=== PATIENT | female | born 1945 | race Caucasian/White ===

== ENCOUNTER → 2016-12-13 | Outpatient (CLI) | payer BC ==
[~2016-12-13] MED LIST: ALBU0.633 INH; ASPEC81 PO; ASPI81TA21 PO; ATV5X PO; CETI10CA PO; KFLHP PO; LPT/40 PO; LSN20 PO; OMEP20TA PO; SERT1TAB68 PO; SYN125 PO
== END | disposition home or self-care (01) ==
LOC: C.LABSPEC 17:08
PROVIDERS: ATTEND Podiatrist Foot & Ankle Surgery
DX: L60.0 Ingrowing nail (principal)

== ENCOUNTER → 2017-01-06 | Outpatient (CLI) | payer BC | END | disposition home or self-care (01) | LOC: C.LABSPEC 17:10 | PROVIDERS: ATTEND Podiatrist Foot & Ankle Surgery | DX: L60.0 Ingrowing nail (principal) ==

== ENCOUNTER 2017-01-09 15:30 | Emergency (ER) | payer BC ==
[~2017-01-09] VITALS: Ht 149.9 cm; Wt 56.9 kg
[~2017-01-09 15:30] MED LIST changes: -ASPI81TA21 PO; -ATV5X PO; -KFLHP PO
[2017-01-09 15:34] VITALS: TEMP 36.4; Ht 149.9 cm; Wt 56.9 kg
[2017-01-09] MEDS ORDERED: SODIUM CHLORIDE 0.9% 1000ML 1,000 ML IV STA (16:31)
[2017-01-09] MEDS ORDERED: ONDANSETRON 8 MG/54 ML D5W IV STA (16:31)
[2017-01-09] MEDS ORDERED: HYDROmorphone INJ 0.5 MG/0.5 ML SYR IV STA (16:31)
[2017-01-09 16:39] VITALS: O2SAT 98
[2017-01-09] MEDS ORDERED: ASPI81TA21 PO (16:46)
[2017-01-09] MEDS ORDERED: KFLHP PO (16:49)
[2017-01-09] MEDS ORDERED: ATV5X PO (16:52)
[2017-01-09 17:05] LABS: BASO % 0.4 %; BASO ABS # 0.06 K/uL (0-0.2); COMPLETE YES; EOS % 4.1 %; HEMATOCRIT 41.5 % (37-47); IG% 0.4 %; LYMPH % 6.8 %; LYMPH ABS # 1.13 K/uL (1.2-3.4); MEAN CELL VOLUME 97.2 fL (80-100); MEAN CORPUSCULAR HEMOGLOBIN 31.4 pg (25-34); MEAN CORPUSCULAR HGB CONC 32.3 g/dl (32-36); MEAN PLATELET VOLUME 8.9 fL (7.4-10.4); MONO % 5.2 %; NEUT % 83.1 %; PLATELET COUNT 359 K/uL (130-400); RED BLOOD COUNT 4.27 M/uL (4.2-5.4); WHITE BLOOD COUNT 16.55 K/uL (4.8-10.8)
--- NOTE | 2017-01-09 17:10 | DIAGNOSTIC IMAGING REPORT ---
CHEST ONE VIEW PORTABLE CLINICAL HISTORY: CHEST PAIN dyspnea COMPARISON STUDY: 05/28/2016 FINDINGS: The bones soft tissues and hemidiaphragms are normal. The cardiomediastinal silhouette is normal. The lungs are clear. The pulmonary vasculature is normal. IMPRESSION: Negative chest. The above report was generated using voice recognition software. It may contain grammatical, syntax or spelling errors. Electronically signed by: Keith Cole M.D. 01/09/2017 5:08 PM Dictated Date/Time: 01/09/2017 5:08 PM
[2017-01-09 17:24] LABS: ALT/SGPT 33 U/L (12-78); AST/SGOT 28 U/L (15-37); BLOOD UREA NITROGEN 14 mg/dl (7-18); BUN/CREATININE RATIO 15.8 (10-20); CALCIUM 8.7 mg/dl (8.5-10.1); CARBON DIOXIDE 28 mmol/L (21-32); CHLORIDE 103 mmol/L (98-107); CREATININE 0.91 mg/dl (0.60-1.20); GLUCOSE 102 mg/dl (70-99); POTASSIUM 3.8 mmol/L (3.5-5.1); SODIUM 139 mmol/L (136-145)
[2017-01-09 17:29] LABS: ALKALINE PHOSPHATASE 109 U/L (45-117); CKMB/CK RATIO 1.6 (0-3.0)
--- NOTE | 2017-01-09 17:55 | DIAGNOSTIC IMAGING REPORT ---
ABDOMINAL ULTRASOUND, RIGHT UPPER QUADRANT HISTORY: upper abd pain. COMPARISON: None. FINDINGS: Pancreas: The pancreas demonstrates a normal echotexture. Liver: Unremarkable. Gallbladder: No gallbladder wall thickening. No gallstones. CBD: 4 mm. Right kidney: No hydronephrosis. IMPRESSION: No significant abnormality identified within the right upper quadrant. Electronically signed by: Giovanni Tinajero M.D. 01/09/2017 5:53 PM Dictated Date/Time: 01/09/2017 5:52 PM
[2017-01-09] MEDS ORDERED: OPTIRAY 320 IV PRN (18:30)
--- NOTE | 2017-01-09 18:43 | DIAGNOSTIC IMAGING REPORT ---
ABD/PELVIS IV CONTRAST ONLY CT DOSE: 266.36 mGy.cm HISTORY: Pain upper abd pain, elevated wbc. Neg us TECHNIQUE: Multiaxial CT images of the abdomen and pelvis were performed following the use of intravenous contrast. A dose lowering technique was utilized adhering to the principles of ALARA. COMPARISON STUDY: Ultrasound same date FINDINGS: Lung bases are clear. Mild fatty replacement of the liver. The kidneys enhance uniformly. Spleen is unremarkable. Mild hyperemia of the wall of the small bowel and to a lesser extent colon. Mild gastric distention. Appearance is suggestive of a nonspecific enteritis. Normal appendix. Bowel pattern is nonobstructive. Several scattered colonic diverticuli with no evidence for diverticulitis. IMPRESSION: 1. Mild nonspecific generalized enteritis. 2. Mild fatty infiltration of liver. 3. Normal appendix. 4. Nonobstructive bowel pattern The above report was generated using voice recognition software. It may contain grammatical, syntax or spelling errors. Electronically signed by: Keith Cole M.D. 01/09/2017 6:41 PM Dictated Date/Time: 01/09/2017 6:39 PM
[2017-01-09] MEDS ORDERED: ONDANSETRON HOME PACK 4MG OD TAB PO ONE (19:30)
[2017-01-09 20:10] VITALS: BP 119/64; PULSE 76; O2SAT 95
--- NOTE | 2017-01-10 00:44 | EMERGENCY ROOM VISIT NOTE ---
History Report prepared by Maddy: Jena Ellis Under the Supervision of: Dr. Dominguez Crane M.D. First contact with patient: 16:27 Chief Complaint: BACK PAIN Stated Complaint: PRESSURE IN BACK AND CHEST, REFLUX, UPSET STOMACH History of Present Illness The patient is a 71 year old female who presents to the Emergency Room with complaints of intermittent abdominal pain that she describes as a pressure that began one week ago. She currently rates her discomfort as an 8/10 in severity. The patient states that in May she had an episode of pain to her chest back and abdomen. She states that after he work up she her pain was attributed to musculoskeletal pain. The patient states that she was prescribed a muscle relaxer by her PCP, but notes that she still experiences intermittent bouts of pain. She states that she experiences nausea, increased acid reflux, and chest and abdominal pressure that radiate into her back. The patient states that she has had a decrease in appetite and states that her discomfort is worsened after eating. She reports a history of three sections and an appendectomy, but states that she still has her gallbladder. The patient states that she did experience chills today. Pt denies LOC, headache, fevers, diaphoresis, visual changes, neck pain, breathing difficulties, vomiting, melena, hematochezia, urinary symptoms, numbness, weakness, lymphadenopathy, rash, or other complaints. Source of History: patient Onset: one week ago Position: abdomen Symptom Intensity: 8/10 Quality: pressure Timing: intermittent Modifying Factors (Worsening): eating Associated Symptoms: + chills, + chest pain, + nausea, + back pain Review of Systems See HPI for pertinent positives and negatives. A total of ten systems were reviewed and were otherwise negative. Past Medical & Surgical Medical Problems: (1) Depressive Disorder Nec (2) Esophageal Reflux (3) Hyperlipidemia Nec/Nos (4) Hypertension Nos (5) Hypothyroidism Nos (6) Irritable Bowel Syndrome Surgical Problems: (1) Lens Replacement Nec Family History Heart disease Hypertension Social History Smoking Status: Never Smoker Alcohol Use: none Drug Use: none Occupation Status: employed Current/Historical Medications Scheduled Aspirin Enteric Coated (Ecotrin Or Generic), 81 MG PO DAILY Atorvastatin (Lipitor), 40 MG PO HS Cephalexin Monohydrate (Cephalexin), 250 MG PO QID Levothyroxine Sodium (Synthroid), 125 MCG PO QAM Lisinopril (Lisinopril), 20 MG PO QAM Omeprazole (Omeprazole), 20 MG PO QAM Sertraline Hcl (Zoloft), 150 MG PO QAM Scheduled PRN Albuterol Sulfate (Albuterol Sulfate), 1 PUFF INH DIRECTED PRN for SOB/ Wheezing Cetirizine Hcl (Zyrtec Allergy), 10 MG PO DAILY PRN for ALLERGIC REACTION Lorazepam (Lorazepam), 0.5 MG PO DAILY PRN for Anxiety/Agitation Allergies Coded Allergies: Astemizole (Verified Allergy, Mild, SWELLING THROAT AND RINGING IN EARS, 05/28/16) Uncoded Allergies: CATS (Allergy, Severe, sneezing wheezing itching, 03/02/16) Physical Exam Vital Signs Date Time Temp Pulse Resp B/P (MAP) Pulse Ox O2 Delivery O2 Flow Rate FiO2 01/09/17 20:10 76 18 119/64 95 01/09/17 19:17 75 01/09/17 19:02 78 18 127/87 95 Room Air 01/09/17 18:13 68 18 155/84 98 Room Air 01/09/17 16:39 98 Room Air 01/09/17 16:39 75 16 99/85 98 Room Air 01/09/17 16:39 98 Room Air 01/09/17 15:34 36.4 100 16 123/70 98 Room Air Physical Exam GENERAL: Awake, alert, well-appearing, in no distress HENT: Normocephalic, atraumatic. Oropharynx unremarkable. EYES: Normal conjunctiva. Sclera non-icteric. NECK: Supple. No nuchal rigidity. FROM. No JVD. RESPIRATORY: Clear to auscultation. CARDIAC: Regular rate, normal rhythm. Extremities warm and well perfused. Pulses equal. ABDOMEN: Soft, non-distended. Epigastric tenderness to palpation.. No rebound or guarding. No masses. RECTAL: Deferred. MUSCULOSKELETAL: Chest examination reveals no tenderness. The back is symmetrical on inspection without obvious abnormality. There is no CVA tenderness to palpation. No joint edema. LOWER EXTREMITIES: Calves are equal size bilaterally and non-tender. No edema. No discoloration. NEURO: Normal sensorium. No sensory or motor deficits noted. SKIN: No rash or jaundice noted. Medical Decision & Procedures ER Provider Diagnostic Interpretation: Radiology results as stated below per my review and radiologist interpretation: CHEST ONE VIEW PORTABLE CLINICAL HISTORY: CHEST PAIN dyspnea COMPARISON STUDY: 05/28/2016 FINDINGS: The bones soft tissues and hemidiaphragms are normal. The cardiomediastinal silhouette is normal. The lungs are clear. The pulmonary vasculature is normal. IMPRESSION: Negative chest. The above report was generated using voice recognition software. It may contain grammatical, syntax or spelling errors. Electronically signed by: Keith Cole M.D. 01/09/2017 5:08 PM Dictated Date/Time: 01/09/2017 5:08 PM ABDOMINAL ULTRASOUND, RIGHT UPPER QUADRANT HISTORY: upper abd pain. COMPARISON: None. FINDINGS: Pancreas: The pancreas demonstrates a normal echotexture. Liver: Unremarkable. Gallbladder: No gallbladder wall thickening. No gallstones. CBD: 4 mm. Right kidney: No hydronephrosis. IMPRESSION: No significant abnormality identified within the right upper quadrant. Electronically signed by: Giovanni Tinajero M.D. 01/09/2017 5:53 PM Dictated Date/Time: 01/09/2017 5:52 PM ABD/PELVIS IV CONTRAST ONLY CT DOSE: 266.36 mGy.cm HISTORY: Pain upper abd pain, elevated wbc. Neg us TECHNIQUE: Multiaxial CT images of the abdomen and pelvis were performed following the use of intravenous contrast. A dose lowering technique was utilized adhering to the principles of ALARA. COMPARISON STUDY: Ultrasound same date FINDINGS: Lung bases are clear. Mild fatty replacement of the liver. The kidneys enhance uniformly. Spleen is unremarkable. Mild hyperemia of the wall of the small bowel and to a lesser extent colon. Mild gastric distention. Appearance is suggestive of a nonspecific enteritis. Normal appendix. Bowel pattern is nonobstructive. Several scattered colonic diverticuli with no evidence for diverticulitis. IMPRESSION: 1. Mild nonspecific generalized enteritis. 2. Mild fatty infiltration of liver. 3. Normal appendix. 4. Nonobstructive bowel pattern The above report was generated using voice recognition software. It may contain grammatical, syntax or spelling errors. Electronically signed by: Keith Cole M.D. 01/09/2017 6:41 PM Dictated Date/Time: 01/09/2017 6:39 PM Laboratory Results 01/09/17 16:45 Red Blood Count 4.27, Mean Corpuscular Volume 97.2, Mean Corpuscular Hemoglobin 31.4, Mean Corpuscular Hemoglobin Concent 32.3, Mean Platelet Volume 8.9, Neutrophils (%) (Auto) 83.1, Lymphocytes (%) (Auto) 6.8, Monocytes (%) (Auto) 5.2, Eosinophils (%) (Auto) 4.1, Basophils (%) (Auto) 0.4, Neutrophils # (Auto) 13.75, Lymphocytes # (Auto) 1.13, Monocytes # (Auto) 0.86, Eosinophils # (Auto) 0.68, Basophils # (Auto) 0.06 01/09/17 16:45 Test 01/09/17 16:45 White Blood Count 16.55 K/uL (4.8-10.8) Red Blood Count 4.27 M/uL (4.2-5.4) Hemoglobin 13.4 g/dL (12.0-16.0) Hematocrit 41.5 % (37-47) Mean Corpuscular Volume 97.2 fL (80-100) Mean Corpuscular Hemoglobin 31.4 pg (25-34) Mean Corpuscular Hemoglobin Concent 32.3 g/dl (32-36) Platelet Count 359 K/uL (130-400) Mean Platelet Volume 8.9 fL (7.4-10.4) Neutrophils (%) (Auto) 83.1 % Lymphocytes (%) (Auto) 6.8 % Monocytes (%) (Auto) 5.2 % Eosinophils (%) (Auto) 4.1 % Basophils (%) (Auto) 0.4 % Neutrophils # (Auto) 13.75 K/uL (1.4-6.5) Lymphocytes # (Auto) 1.13 K/uL (1.2-3.4) Monocytes # (Auto) 0.86 K/uL (0.11-0.59) Eosinophils # (Auto) 0.68 K/uL (0-0.5) Basophils # (Auto) 0.06 K/uL (0-0.2) RDW Standard Deviation 44.7 fL (36.4-46.3) RDW Coefficient of Variation 12.6 % (11.5-14.5) Immature Granulocyte % (Auto) 0.4 % Immature Granulocyte # (Auto) 0.07 K/uL (0.00-0.02) Anion Gap 8.0 mmol/L (3-11) Est Creatinine Clear Calc Drug Dose 44.2 ml/min Estimated GFR () 74.1 Estimated GFR (Non- 63.9 BUN/Creatinine Ratio 15.8 (10-20) Calcium Level 8.7 mg/dl (8.5-10.1) Total Bilirubin 0.4 mg/dl (0.2-1) Direct Bilirubin 0.1 mg/dl (0-0.2) Aspartate Amino Transf (AST/SGOT) 28 U/L (15-37) Alanine Aminotransferase (ALT/SGPT) 33 U/L (12-78) Alkaline Phosphatase 109 U/L (45-117) Total Creatine Kinase 216 U/L (26-192) Creatine Kinase MB 3.5 ng/ml (0.5-3.6) Creatine Kinase MB Ratio 1.6 (0-3.0) Troponin I < 0.015 ng/ml (0-0.045) Total Protein 7.6 gm/dl (6.4-8.2) Albumin 3.9 gm/dl (3.4-5.0) Lipase 178 U/L (73-393) Laboratory results reviewed by me Medications Administered Medications (Trade) Dose Ordered Sig/Lola Route Start Time Stop Time Status Last Admin Dose Admin Ondansetron HCl (Zofran 8mg Iv) 8 mg NOW STAT IV 01/09/17 16:31 01/09/17 16:32 DC 01/09/17 16:54 8 MG Hydromorphone HCl (Dilaudid Inj) 0.5 mg NOW STAT IV 01/09/17 16:31 01/09/17 16:33 DC 01/09/17 16:53 0.5 MG Sodium Chloride 1,000 ml @ 125 mls/hr Q8H STAT IV 01/09/17 16:31 01/09/17 20:24 DC 01/09/17 16:54 125 MLS/HR Ondansetron HCl (ZOFRAN ODT 4MG Home Pack) 1 homepack UD ONCE PO 01/09/17 19:30 01/09/17 19:31 DC 01/09/17 19:51 1 HOMEPACK ECG Indication: abdominal pain, chest pain Rate (beats per minute): 76 Rhythm: normal sinus Findings: no acute ischemic change, no ectopy ED Course 1629: The patient was evaluated in room C4. A complete history and physical exam was performed. 163: Ordered Sodium Chloride 1000 ml @ 125 mls/hr IV, Dilaudid Inj 0.5 mg IV, Zofran 8 mg IV. 180: I reevaluated the patient and she is feeling a lot better. I discussed the test results with her and I discussed the treatment plan. She is going to have a CT scan. 1914: I reevaluated the patient and she is resting comfortably. I discussed the exam findings with her and I discussed the treatment plan. She verbalized complete understanding and agreement. She is ready to go home. 1929: Ordered Ondansetron HCl 1 homepack PO. Medical Decision Triage Nursing notes reviewed. The patient's presentation and history were concerning for abdominal pain. Etiologies such as PUD, biliary pathology, pancreatitis, appendicitis, diverticulitis, obstruction, inflammatory bowel disease, renal colic, mesenteric ischemia, aortic pathology, infections, genitourinary, UTI, perforated viscus, as well as others were entertained. Patient was evaluated. She was given Zofran and Dilaudid. She was hydrated. On reassessment she felt much better. Her symptoms resolved. She had a slight leukocytosis on CBC. Her chemistry panel, LFTs, and lipase were unremarkable. Cardiac markers and ECG were unremarkable. The patient had a gallbladder ultrasound which did not reveal any abnormalities. Her CT scan of the abdomen and pelvis revealed a nonspecific enteritis. She did have a moderate amount of liquid in the stomach. She may have a component of gastroparesis as the last time she had anything to eat was this morning. There is no signs of obstruction. At this point as she is hemodynamically stable and feeling well I discussed conservative management with outpatient referral to gastroenterology. By the evaluation outlined above other emergent etiologies such as those listed in the differential, as well as others, were deemed relatively unlikely. The patient was educated about the findings as listed above. All questions were answered and the patient was pleased with the treatment. Return instructions were outlined and the patient was discharged in stable condition. The patient was referred to GI and her PCP for follow-up for a recheck of the current condition. Medication Reconcilliation Current Medication List: was personally reviewed by me Blood Pressure Screening Patient's blood pressure: Elevated blood pressure Blood pressure disposition: Elevated BP felt to be situational, Did not require urgent referral Impression Primary Impression: Epigastric abdominal pain Additional Impression: Enteritis Scribe Attestation The scribe's documentation has been prepared under my direction and personally reviewed by me in its entirety. I confirm that the note above accurately reflects all work, treatment, procedures, and medical decision making performed by me. Departure Information Dispostion Home / Self-Care Referrals Katarzyna Escobar DO (PCP) Pamela Estrada DO Forms HOME CARE DOCUMENTATION FORM, IMPORTANT VISIT INFORMATION Patient Instructions My [facility] Additional Instructions ABDOMINAL PAIN INSTRUCTIONS: DO NOT drive, drink alcohol, operate machinery, or perform dangerous activities today. You were given medications in the ER that can affect your ability to safely function or operate a vehicle. Zofran 4 mg oral dissolving tablets: take one tablet and allow it to melt in your mouth every 4 hours as needed for nausea. Double your Prilosec to twice daily until directed otherwise by your primary doctor or GI follow-up. Acetaminophen(Tylenol) may be used for fever or pain. Use 1000mg every six hours as needed. Avoid using more than 4000mg in a 24 hour period. Rest and drink plenty of fluids as tolerated. Slow sips of water or sports drinks are recommended instead of large amounts all at once. Continue current medications. Once your stomach is settled start with a clear liquid diet (jello, soup broth, etc.) and then advance as tolerated. You should avoid full, heavy meals for about 24 hrs from the time your symptoms resolved. Return to the ER immediately for worsening or persistent abdominal pain, vomiting, fevers, chest pains, difficulty breathing, black or bloody stools, worsening of your condition, or as needed. Follow up with your primary physician in 2-3 days for a recheck of your current condition. Follow-up with [facility] gastroenterology as discussed. The numbers listed below under Dr. Estrada. Problem Qualifiers
== END 2017-01-09 20:11 | disposition home or self-care (01) ==
LOC: C.EDB 15:36 → C.EDC 20:11
DX: K52.9 Noninfective gastroenteritis and colitis, unspecified (principal); F32.9 Major depressive disorder, single episode, unspecified; K21.9 Gastro-esophageal reflux disease without esophagitis; E78.5 Hyperlipidemia, unspecified; I10 Essential (primary) hypertension; E03.9 Hypothyroidism, unspecified; Z96.1 Presence of intraocular lens; Z82.49 Family history of ischemic heart disease and other diseases of the circulatory system; Z79.82 Long term (current) use of aspirin; Z79.899 Other long term (current) drug therapy

== ENCOUNTER → 2017-08-22 | Outpatient (CLI) | payer OTHER ==
[~2017-08-22] MED LIST changes: -ASPEC81 PO; +ASPI81TA21 PO; +ATV5X PO; +KFLHP PO
[2017-08-22 09:48] LABS: ALBUMIN 3.7 gm/dl (3.4-5.0); ALT/SGPT 26 U/L (12-78); AST/SGOT 25 U/L (15-37); BLOOD UREA NITROGEN 14 mg/dl (7-18); CARBON DIOXIDE 28 mmol/L (21-32); CREATININE 0.94 mg/dl (0.60-1.20); GLUCOSE 91 mg/dl (70-99); SODIUM 139 mmol/L (136-145); TOTAL PROTEIN 7.9 gm/dl (6.4-8.2)
[2017-08-22 09:58] LABS: ALKALINE PHOSPHATASE 109 U/L (45-117); CHOLESTEROL 347 mg/dl (0-200); LDL CHOLESTEROL CALCULATED 245 mg/dl
== END | disposition home or self-care (01) ==
LOC: C.LAB1850 07:31
PROVIDERS: ATTEND Family Medicine
DX: E03.8 Other specified hypothyroidism (principal); E06.3 Autoimmune thyroiditis; E78.00 Pure hypercholesterolemia, unspecified; I10 Essential (primary) hypertension

== ENCOUNTER 2022-02-05 05:39 | Inpatient (IN) ==
[2022-02-05 06:12] LABS: Basophils # (auto) 0.04 K/uL (0-0.2); Basophils % (auto) 0.2 %; Eosinophils # (auto) 0.04 K/uL (0-0.50); Eosinophils % (auto) 0.2 %; Hemoglobin 12.4 g/dl (12.0-16.0); Immature Granulocytes # (auto) 0.13 K/uL (0.00-0.02); Immature Granulocytes % (auto) 0.7 %; Lymphocytes # (auto) 2.38 K/uL (1.2-3.4); Lymphocytes % (auto) 12.1 %; Mean Corpuscular Hemoglobin 31.9 pg (25.0-34.0); Mean Corpuscular Hgb Conc 32.6 g/dL (32.0-36.0); Mean Corpuscular Volume 97.7 fL (80.0-100.0); Mean Platelet Volume 8.6 fL (9.4-12.3); Monocytes # (auto) 1.28 K/uL (0.24-0.82); Monocytes % (auto) 6.5 %; Neutrophils # (auto) 15.81 K/uL (1.4-6.5); Neutrophils % (auto) 80.3 %; Platelet Count 343 K/uL (130-400); RDW Coefficient of Variation 12.1 % (11.5-14.5); RDW Standard Deviation 43.5 fL (36.4-46.3); Red Blood Count 3.89 M/uL (3.93-5.22); White Blood Count 19.68 K/ul (4.8-10.8)
[2022-02-05 06:31] LABS: Albumin Globulin Ratio 1.2 (0.9-2); Albumin Level 3.8 gm/dl (3.4-5.0); BUN Creatinine Ratio 15.5 (10-20); Bilirubin,Total 0.6 mg/dl (0.2-1.0); Calcium 8.8 mg/dl (8.5-10.1); Creatinine Clr Calc Pharmacy 38.2 ml/min; Est GFR (African American) 66.2 ml/min; Est GFR (Non-African American) 57.1 ml/min; Globulin 3.2 gm/dl (2.5-4.0); Potassium 4.1 mmol/L (3.5-5.1)
[2022-02-05] MEDS ORDERED: KETOROLAC TROMETHAMINE 15 MG/ML VIAL IV ONE (06:40)
[2022-02-05] MEDS ORDERED: SODIUM CHLORIDE 0.9% 1000ML 500 ML IV ONE (06:40)
[2022-02-05] MEDS ORDERED: cefTRIAXone SODIUM 2,000 MG/70 ML BAG IV STA (06:40)
--- NOTE | 2022-02-05 06:43 | Emergency Department Note ---
Impression & Plan Acute pyelonephritis, Leukocytosis, Vomiting ED Provider Note NAME: ASMITA JEFRFEY AGE: 76 SEX: F : 1945 ARRIVES VIA: Walk-In INFORMANT: Patient ED PROVIDER(S): Shay Whatley DO CHIEF COMPLAINT: abdominal pain HPI: Patient is a 76-year-old female who presents the ER for abdominal pain dysuria urgency which started a week ago. About 2 to 3 days ago she started getting pain in bilateral lower back. She recorded fevers. She admits to nausea but no vomiting. No headache or change in vision. No chest pain or shortness of breath. Pain is about a 4 out of 10 and constant and achy in the lower belly but sharp when you push on her abdomen. Is worse in the left lower quadrant. ROS: See above HPI for pertinent positives & negatives. A total of 10 systems reviewed and were otherwise negative. PAST MEDICAL HISTORY:See Below PAST SURGICAL HISTORY:See Below FAMILY HISTORY:See Below SOCIAL HISTORY:See Below HOME MEDICATIONS:See Below ALLERGIES:See Below VITALS:See Below PHYSICAL EXAMINATION: GENERAL: Sitting up in bed, alert, well appearing, well nourished, no distress, non-toxic EYE EXAM: normal conjunctiva. OROPHARYNX: mucous membranes are dry NECK: supple, no nuchal rigidity, no adenopathy, non-tender LUNGS: Clear to auscultation. Normal chest wall mechanics HEART: no murmurs, S1 normal and S2 normal ABDOMEN: abdomen soft, TTP lower abd, normo-active bowel sounds, no masses, no rebound or guarding. UPPER EXTREMITIES: upper extremities are grossly normal. LOWER EXTREMITIES: No pitting edema. NEURO EXAM: Normal sensorium, cranial nerves II-XII grossly intact, normal speech, no gross weakness of arms, no gross weakness of legs. MEDICAL DECISION MAKING: Patient is a 76-year-old female who presents the ER for urinary symptoms which started about a week ago and was treated with [id number] medications. About 2 to 3 days ago she started having back pain. She is very nauseated and vomiting today. IV was established blood work was obtained. Labs show leukocytosis of 20,000. No significant anemia. Did drop her blood pressure slightly to 95. She responded to IV fluids. BMP along with LFTs bilirubin and lipase was unremarkable. UA was contaminated but does suggest a UTI. CT abdomen pelvis shows bilateral pyelonephritis. She was given IV fluids Zofran Toradol. Was also given Rocephin. She did vomit while she was here. She was updated bedside. Discussed with the hospitalist for further evaluation. Triage Nursing notes reviewed. Limited review of prior medical records performed Vital Signs: reviewed and remarkable for no significant abnormalities Differential diagnosis: Differential diagnoses includes but is not limited to gastritis, peptic ulcer disease, GERD, gallbladder disease, pancreatitis, small bowel obstruction, acute coronary syndrome, pericarditis, ischemic bowel, irritable bowel disease, irritable bowel syndrome, appendicitis, diverticulitis, malignancy, hernia, urinary tract infection, torsion, perforation, trauma, infectious. ER treatment provided: See below Diagnostics interpreted by me: ECG: none Cardiac Monitoring: An order was placed for continuous cardiac monitoring. The monitor shows a rate of 90 with sinus rhythm. Laboratory studies: As stated above and show below. Imaging studies: CT abdomen pelvis suggest bilateral pyelonephritis Consultation(s): Discussed with Dr. Oro in regards to further evaluation Procedures: none Critical Care: None Past Med/Surg History Medical History (Updated 02/05/22 @ 08:43 by Shay Whatley DO) Epigastric abdominal pain UTI (urinary tract infection) Social History Smoking Status: Never smoker Preferred Language: Com[place]an Feels Safe at Home: Yes Allergies Allergies Allergy/AdvReac Type Severity Reaction Status Date / Time cat dander Allergy Severe sneezing Verified 01/29/19 08:06 wheezing itching astemizole Allergy Mild SWELLING Verified 01/29/19 08:06 THROAT AND RINGING IN EARS Home Meds Home Medications Medication Instructions Recorded Confirmed atorvastatin 40 mg tablet 40 mg PO DAILY 03/30/18 11/03/20 levothyroxine 125 mcg tablet 125 mcg PO DAILY 03/30/18 11/03/20 lisinopril 20 mg tablet 20 mg PO DAILY 03/30/18 11/03/20 omeprazole 20 mg capsule,delayed 20 mg PO DAILY 03/30/18 11/03/20 release sertraline 100 mg tablet 100 mg PO DAILY 03/30/18 11/03/20 aspirin 81 mg tablet,delayed 81 mg PO DAILY 01/29/19 11/03/20 release (Stephane Low Dose Aspirin) Previous Rx's Medication Instructions Recorded sulfamethoxazole 800 160 mg PO Q12H #20 tabs 01/29/19 mg-trimethoprim 160 mg tablet (Bactrim DS) Results & Data (ED) Vital Signs Vital Signs - 24 hr 02/05/22 05:41 Temperature 36.4 C L Temperature Source Temporal Artery Scan Pulse Rate 86 Respiratory Rate 18 Blood Pressure 125/64 Blood Pressure Mean 84 Blood Pressure Position Sitting Pulse Oximetry 96 Oxygen Delivery Method Room Air Sepsis Recent Fever Within 48 Hours No Sepsis New/Unexplained Change in Mental Status N/A Sepsis Action Taken by Nursing No Action Required Laboratory Data Result diagrams: 02/05/22 06:00 02/05/22 06:00 Lab Results 02/05/22 02/05/22 02/05/22 Range/Units 05:50 06:00 06:00 WBC 19.68 H (4.8-10.8) K/ul RBC 3.89 L (3.93-5.22) M/uL Hgb 12.4 (12.0-16.0) g/dl Hct 38.0 (34.1-44.9) % MCV 97.7 (80.0-100.0) fL MCH 31.9 (25.0-34.0) pg MCHC 32.6 (32.0-36.0) g/dL RDW Std Deviation 43.5 (36.4-46.3) fL RDW Coeff of [place] 12.1 (11.5-14.5) % Plt Count 343 (130-400) K/uL MPV 8.6 L (9.4-12.3) fL Immature Gran % (Auto) 0.7 % Neut % (Auto) 80.3 % Lymph % (Auto) 12.1 % [place] % (Auto) 6.5 % Eos % (Auto) 0.2 % Baso % (Auto) 0.2 % Neut # (Auto) 15.81 H (1.4-6.5) K/uL Lymph # (Auto) 2.38 (1.2-3.4) K/uL [place] # (Auto) 1.28 H (0.24-0.82) K/uL Eos # (Auto) 0.04 (0-0.50) K/uL Baso # (Auto) 0.04 (0-0.2) K/uL Immature Gran # (Auto) 0.13 H (0.00-0.02) K/uL Sodium 135 L (136-145) mmol/L Potassium 4.1 (3.5-5.1) mmol/L Chloride 102 (98-107) mmol/L Carbon Dioxide 26 (21-32) mmol/L Anion Gap 7 (3-11) BUN 15 (6-23) mg/dl Creatinine 0.97 (0.6-1.2) mg/dl Est Cr Clr Drug Dosing 38.2 ml/min Est GFR ( Amer) 66.2 ml/min Est GFR (Non-Af Amer) 57.1 ml/min BUN/Creatinine Ratio 15.5 (10-20) Glucose 117 H (70-99(Fasting)) mg/dl Calcium 8.8 (8.5-10.1) mg/dl Total Bilirubin 0.6 (0.2-1.0) mg/dl AST 34 (13-39) U/L ALT 39 (7-52) U/L Alkaline Phosphatase 89 (34-104) U/L Total Protein 7.0 (6.0-8.3) gm/dl Albumin 3.8 (3.4-5.0) gm/dl Globulin 3.2 (2.5-4.0) gm/dl Albumin/Globulin Ratio 1.2 (0.9-2) Lipase 52 (11-82) U/L Urine Color Yellow Urine Appearance Clear (Clear) Urine pH 7.5 (4.5-7.5) Ur Specific [place] 1.012 (1.000-1.030) Urine Protein 1+ H (Negative) Urine Glucose (UA) Negative (Negative) Urine Ketones Negative (Negative) Urine Blood 3+ H (Negative) Urine Nitrite Negative (Negative) Urine Bilirubin Negative (Negative) Urine Urobilinogen Negative (Negative) Ur Leukocyte Esterase 1+ H (Negative) Urine WBC (Auto) 10-30 H (0-5) /hpf Urine RBC (Auto) >30 H (0-4) /hpf U Hyaline Cast (Auto) 1-5 (0-5) /lpf U Epithel Cells (Auto) >30 H (0-5) /lpf Urine Bacteria (Auto) Negative (Negative) Ur Renal Epithelial Cell Not Reportable Administered Medications Sodium Chloride (Nss 1000ml) 1,000 mls @ 999 mls/hr IV .Q1H1M ONE Stop: 02/05/22 09:08 Last Admin: 02/05/22 08:40 Dose: 999 mls/hr Documented By: RUDDY Discontinued Medications Sodium Chloride (Nss 1000ml) 500 mls @ 999 mls/hr IV .Q31M ONE Stop: 02/05/22 07:10 Last Infusion: 02/05/22 08:41 Dose: 0 mls/hr Documented By: Admin: 02/05/22 06:50 Dose: 999 mls/hr Documented By: RANDEE Ceftriaxone Sodium (Rocephin) 2,000 mg in 70 mls @ 140 mls/hr IV NOW STA Stop: 02/05/22 07:09 Last Infusion: 02/05/22 08:41 Dose: 0 mls/hr Documented By: Admin: 02/05/22 06:50 Dose: 140 mls/hr Documented By: RANDEE Ioversol (Optiray 300 100ml) 93 ml IV ONCE ONE Stop: 02/05/22 07:36 Last Admin: 02/05/22 07:39 Dose: 93 ml Documented By: SUE Ketorolac Tromethamine (Ketorolac Tromethamine 15 Mg/Ml Vial) 15 mg IV NOW ONE Stop: 02/05/22 06:41 Last Admin: 02/05/22 06:50 Dose: 15 mg Documented By: RANDEE Morphine Sulfate (Morphine Sulfate 4 Mg/Ml 1 Ml Carp\Vial) 4 mg IV NOW STA Stop: 02/05/22 08:22 Last Admin: 02/05/22 08:40 Dose: 4 mg Documented By: RUDDY Ondansetron HCl (Ondansetron Inj 2 Mg/Ml 2 Ml Vial) 4 mg IV NOW STA Stop: 02/05/22 06:57 Last Admin: 02/05/22 07:00 Dose: 4 mg Documented By: RANDEE Ondansetron HCl (Ondansetron Inj 2 Mg/Ml 2 Ml Vial) Confirm Administered Dose 4 mg .ROUTE .STK-MED ONE Stop: 02/05/22 07:00 Last Admin: 02/05/22 07:00 Dose: Not Given Documented By: RANDEE Imaging Data Radiologist's Impression: Abdomen/Pelvis CT 02/05/22 05:[address] WITH IV CONTRAST CT DOSE: 263.24 mGy.cm HISTORY: lower abd pain/flank pain, ua sx TECHNIQUE: Multiaxial CT images of the abdomen and pelvis were performed following the use of intravenous contrast. A dose lowering technique was utilized adhering to the principles of ALARA. COMPARISON STUDY: Abdomen and pelvis CT 01/29/2019. FINDINGS: The lung bases are essentially clear. No pneumoperitoneum. No pneumatosis. Dextroscoliosis and degenerative changes again noted within the lumbar spine. Stable 1.2 cm cyst within the right hepatic lobe. The gallbladder, spleen, and adrenal glands unremarkable. There is a stable 8 mm hypodense lesion within the uncinate process of the pancreas. This favors a side branch intraductal papillary mucinous neoplasm given the long-term stability. Moderate calcified plaque within the normal caliber abdominal aorta. No retroperitoneal lymphadenopathy. Prior hysterectomy. Mild bladder wall thickening. No ureteral stones. No hydronephrosis. Heterogeneous enhancement of the bilateral kidneys with mild bilateral perinephric fat stranding and urothelial thickening within the bilateral ureters. This is most pronounced on the right and is consistent with a bilateral pyelonephritis/pyelitis. The main portal vein is patent. Parsons carmita diverticulosis. No evidence for acute diverticulitis. No bowel wall thickening or obstruction. Normal appendix. IMPRESSION: 1. Heterogeneous enhancement of the bilateral kidneys with mild bilateral perinephric fat stranding. This is most pronounced on the right and favors a bilateral pyelonephritis. Recommend correlation with urinalysis. 2. Mild bladder wall thickening likely representing a cystitis. 3. No bowel wall thickening or obstruction. 4. Colonic diverticulosis. No evidence for acute diverticulitis. 5. Additional findings as described above. ACT 112: Negative or not required by law. Electronically signed by: Giovanni Tinajero M.D. 02/05/2022 7:59 AM Discharge Plan Visit Data Chief Complaint: Urinary Symptoms Stated Complaint: UTI ED Provider: Shay Whatley Discharge Problem: Acute pyelonephritis, Leukocytosis, Vomiting Forms Stand Alone Forms: My [facility] [place] Prescriptions Prescriptions: No Action atorvastatin 40 mg tablet 40 mg PO DAILY lisinopril 20 mg tablet 20 mg PO DAILY sertraline 100 mg tablet 100 mg PO DAILY levothyroxine 125 mcg tablet 125 mcg PO DAILY omeprazole 20 mg capsule,delayed release(DR/EC) 20 mg PO DAILY aspirin [Stephane Low Dose Aspirin] 81 mg Tablet,Delayed Release (Dr/Ec) 81 mg PO DAILY sulfamethoxazole-trimethoprim [Bactrim DS] 800-160 mg tablet 160 mg PO Q12H Qty: 20 0RF Referrals Referrals: Katarzyna Escobar, [Primary Care Provider] -
[2022-02-05 06:45] LABS: Appearance Urine Clear (Clear); Bacteria Urine Automated Negative (Negative); Bilirubin Urine Negative (Negative); Blood Urine 3+ (Negative); Color Urine Yellow; Epithelial Cell Urine Auto >30 /lpf (0-5); Glucose Urine UA Negative (Negative); Ketones Urine Negative (Negative); Leukocyte Esterase Urine 1+ (Negative); Nitrite Urine Negative (Negative); RBC Urine Automated >30 /hpf (0-4); Specific Gravity Urine 1.012 (1.000-1.030); Urobilinogen Urine Negative (Negative); pH Urine 7.5 (4.5-7.5)
[2022-02-05 06:50] LABS: Protein Urine 1+ (Negative)
[2022-02-05] MEDS ORDERED: ONDANSETRON INJ 2 MG/ML 2 ML VIAL IV STA (06:56)
[2022-02-05] MEDS ORDERED: ONDANSETRON INJ 2 MG/ML 2 ML VIAL ONE (06:59)
[2022-02-05] MEDS ORDERED: OPTIRAY 300 100mL IV ONE (07:35)
--- NOTE | 2022-02-05 08:02 | CT Scan Report ---
ABDOMEN AND PELVIS CT WITH IV CONTRAST CT DOSE: 263.24 mGy.cm HISTORY: lower abd pain/flank pain, ua sx TECHNIQUE: Multiaxial CT images of the abdomen and pelvis were performed following the use of intrave nous contrast. A dose lowering technique was utilized adhering to the principles of ALARA. COMPARISON STUDY: Abdomen and pelvis CT 01/29/2019. FINDINGS: The lung bases are essentially clear. No pneumoperitoneum. No pneumatosis. Dextroscoliosis and degenerative changes again noted within the lumbar spine. Stable 1.2 cm cyst within the right hep atic lobe. The gallbladder, spleen, and adrenal glands unremarkable. There is a stable 8 mm hypodense lesion within the uncinate process of the pancreas. This favors a side branch intraductal papillary mucinous neoplasm given the long-term stability. Moderate calcified plaque within the normal caliber abdominal aorta. No retroperitoneal lymphadenopathy. Prior hysterectomy. Mild bladder wall thickening . No ureteral stones. No hydronephrosis. Heterogeneous enhancement of the bilateral kidneys with mild bilateral perinephric fat stranding and urothelial thickening within the bilateral ureters. This is most pronounced on the right and is consistent with a bilateral pyelonephritis/pyelitis. The main por viola vein is patent. Colonic diverticulosis. No evidence for acute diverticulitis. No bowel wall thick ening or obstruction. Normal appendix. IMPRESSION: 1. Heterogeneous enhancement of the bilateral kidneys with mild bilateral perinephric fat stranding. This is most pronounced on the right and favors a bilateral pyelonephritis. Recommend correlation wit h urinalysis. 2. Mild bladder wall thickening likely representing a cystitis. 3. No bowel wall thickening or obstruction. 4. Colonic diverticulosis. No evidence for acute diverticulitis. 5. Additional findings as described above. ACT 112: Negative or not required by law. Electronically signed by: Giovanni Tinajero M.D. 02/05/2022 7:59 AM
[2022-02-05] MEDS ORDERED: SODIUM CHLORIDE 0.9% 1000ML 1,000 ML IV ONE (08:08)
[2022-02-05] MEDS ORDERED: MoRPHine SULFATE 4 MG/ML 1 ML CARP\\VIAL IV STA (08:21)
--- NOTE | 2022-02-05 09:32 | History & Physical Report ---
Date of Service February 05, 2022 Assessment & Plan (1) Acute pyelonephritis: (2) Leukocytosis: Plan: Patient presented with urinary urgency, frequency, abdominal pain, bilateral flank pain and nausea. Physical exam notable for suprapubic tenderness on bilateral CVA tenderness Labs notable for leukocytosis of 19,000. UA showed 3+ blood, positive leukocyte esterase, 10-[address] noted heterogeneous enhancement of bilateral kidneys with mild bilateral perinephric fat stranding suggestive of bilateral pyelonephritis; and cystitis. Patient has complicated UTI with bilateral pyelonephritis. Patient does have leukocytosis but does not meet SIRS criteria for sepsis at this time. Follow-up urine culture already sent in ER. Continue ceftriaxone Reports vaginal itching is resolved Tylenol as needed for pain. (3) Hypertension: Plan: Patient's takes losartan [recently changed from lisinopril for cough by PCP] Reports cough is resolved since changed to losartan. Considering patient's low normal blood pressure ranging from 97/45-120 5/64 this morning, will hold antihypertensive for now monitor. We will resume as needed (4) Hypothyroidism: Plan: Continue levothyroxine (5) Hyperlipidemia: Plan: Continue home rosuvastatin Next (6) Anxiety: Plan: Per PCPs note, patient had depression and generalized anxiety disorder. Patient reports this is stable and controlled. Continue home sertraline 150 mg daily (7) DVT prophylaxis: Plan: Lovenox subcu for DVT prophylaxis. Dispo: Med telemetry CODE STATUS: Full code per patient's wishes History of Present Illness Chief Complaint: Bilateral flank pain Primary Care Provider: Katarzyna Escobar DO 76-year-old woman with history of hypertension, hyperlipidemia, hypothyroidism, depression/YVONNE who presented to the ER complaining of urinary symptoms that started over a week ago. Patient reported that she started having urinary symptoms over a week ago after [place]. She reported urinary symptoms started as urinary urgency and frequency and later associated with lower abdominal pain, mild to moderate, not referred. Denied any fevers or chills. Patient reported that she took Uristat [id number] medication. Subsequently developed some vaginal itching but denied any vaginal discharge for which she took Monistat and it resolved. Denied dysuria, hematuria. Continued to have urinary symptoms. Over the past few days started having bilateral flank pain, described this spasm-like, not referred, associated with nausea. Denied vomiting. Reports weakness. Denied any chest pain, cough, shortness of breath, headache or dizziness Reported some loose stool for the past few days. Denied hematochezia or melena. Patient reports history of urinary tract infection in the past. Last episode was a year ago after the [place] last year. Patient denies smoking, alcohol or illicit drug use Reports history of section and cataract surgeries. Reports family history of heart disease in the father and stroke in the mom. Allergies Allergy/AdvReac Type Severity Reaction Status Date / Time cat dander Allergy Severe sneezing Verified 01/29/19 08:06 wheezing itching astemizole Allergy Mild SWELLING Verified 01/29/19 08:06 THROAT AND RINGING IN EARS Home Medications Medication Instructions Recorded Confirmed Type levothyroxine 125 mcg tablet 125 mcg PO DAILY 03/30/18 02/05/22 History sertraline 100 mg tablet 150 mg PO DAILY 03/30/18 02/05/22 History cyclobenzaprine 5 mg tablet 5 mg PO HS PRN Muscle Spasm 02/05/22 02/05/22 History lorazepam 0.5 mg tablet 0.5 mg PO HS PRN Anxiety 02/05/22 02/05/22 History losartan 50 mg tablet 50 mg PO DAILY 02/05/22 02/05/22 History rosuvastatin 40 mg tablet 40 mg PO DAILY 02/05/22 02/05/22 History valacyclovir 1 gram tablet 1 mg PO TID PRN Rash 02/05/22 02/05/22 History Past Med/Surg History Medical History (Updated 02/05/22 @ 09:43 by Marlena Adler MD) Epigastric abdominal pain UTI (urinary tract infection) Social History Smoking Status: Never smoker Preferred Language: Greenlandic Feels Safe at Home: Yes Review of Systems Constitutional: + fatigue; no fever and no chills Ear, Nose, Mouth, Throat: no dizziness, no nasal congestion and no sore throat Respiratory: no cough, no chest congestion, no dyspnea and no dyspnea on exertion Cardiovascular: no chest pain, no chest pain at rest, no dyspnea, no palpitations and no lightheadedness Gastrointestinal: + abdominal pain, + nausea and + diarrhea/loose stools; no vomiting and no hematemesis Genitourinary: + urinary frequency, + urinary urgency and + flank pain; no dysuria and no hematuria Neurologic: no unsteadiness, no headache(s) and no confusion Psychiatric: no depression and no anxiety Physical Exam Constitutional: + well hydrated; no acute distress Elderly woman Eyes: PERRL, conjunctivae normal, anicteric sclerae ENMT: external ear and nose normal, oropharynx normal Respiratory: normal respiratory effort, lungs clear to auscultation Cardiovascular: Rate/Rhythm: regular rate and regular rhythm S1-S2 Gastrointestinal (Abdomen): Abdomen is soft, nondistended, normal bowel sounds. Suprapubic tenderness Musculoskeletal: no cyanosis or clubbing, extremities motor strength 5/5 No pedal edema Neurologic: PERRL, EOMI, accommodation nl, no face palsy, no dysarthria Psychiatric: A+Ox3, euthymic affect Genitourinary: Bilateral CVA tenderness Results & Data Results & Data ([facility]) Vital Signs (Past 12 Hours) Vital Signs Temp Pulse Pulse Resp BP BP Pulse Ox 02/05/22 08:00 69 18 97/45 L 94 02/05/22 08:00 02/05/22 05:41 36.4 C L 86 18 125/64 96 O2 Del Method 02/05/22 08:00 Room Air 02/05/22 08:00 Room Air 02/05/22 05:41 Room Air Laboratory Results Abnormal lab results 02/05/22 02/05/22 02/05/22 Range/Units 05:50 06:00 06:00 WBC 19.68 H (4.8-10.8) K/ul RBC 3.89 L (3.93-5.22) M/uL MPV 8.6 L (9.4-12.3) fL Neut # (Auto) 15.81 H (1.4-6.5) K/uL [place] # (Auto) 1.28 H (0.24-0.82) K/uL Immature Gran # (Auto) 0.13 H (0.00-0.02) K/uL Sodium 135 L (136-145) mmol/L Glucose 117 H (70-99(Fasting)) mg/dl Urine Protein 1+ H (Negative) Urine Blood 3+ H (Negative) Ur Leukocyte Esterase 1+ H (Negative) Urine WBC (Auto) 10-30 H (0-5) /hpf Urine RBC (Auto) >30 H (0-4) /hpf U Epithel Cells (Auto) >30 H (0-5) /lpf Diagnostic Findings ABDOMEN AND PELVIS CT WITH IV CONTRAST CT DOSE: 263.24 mGy.cm HISTORY: lower abd pain/flank pain, ua sx TECHNIQUE: Multiaxial CT images of the abdomen and pelvis were performed following the use of intravenous contrast. A dose lowering technique was utilized adhering to the principles of ALARA. COMPARISON STUDY: Abdomen and pelvis CT 01/29/2019. FINDINGS: The lung bases are essentially clear. No pneumoperitoneum. No pneumatosis. Dextroscoliosis and degenerative changes again noted within the lumbar spine. Stable 1.2 cm cyst within the right hepatic lobe. The gallbladder, spleen, and adrenal glands unremarkable. There is a stable 8 mm hypodense lesion within the uncinate process of the pancreas. This favors a side branch intraductal papillary mucinous neoplasm given the long-term stability. Moderate calcified plaque within the normal caliber abdominal aorta. No retroperitoneal lymphadenopathy. Prior hysterectomy. Mild bladder wall thickening. No ureteral stones. No hydronephrosis. Heterogeneous enhancement of the bilateral kidneys with mild bilateral perinephric fat stranding and urothelial thickening within the bilateral ureters. This is most pronounced on the right and is consistent with a bilateral pyelonephritis/pyelitis. The main portal vein is patent. Colonic diverticulosis. No evidence for acute diverticulitis. No bowel wall thickening or obstruction. Normal appendix. IMPRESSION: 1. Heterogeneous enhancement of the bilateral kidneys with mild bilateral perinephric fat stranding. This is most pronounced on the right and favors a bilateral pyelonephritis. Recommend correlation with urinalysis. 2. Mild bladder wall thickening likely representing a cystitis. 3. No bowel wall thickening or obstruction. 4. Colonic diverticulosis. No evidence for acute diverticulitis. 5. Additional findings as described above. Code Status & VTE Plan Code Status Full code
[2022-02-05] MEDS: ACETAMINOPHEN 325 MG TAB PO PRN ×2 (14:29→20:40)
[2022-02-05] MEDS: ROSUVASTATIN CALCIUM 20 MG TAB PO SCH (16:20)
[2022-02-05] MEDS: LEVOTHYROXINE SODIUM 125 MCG TABLET PO SCH (16:20)
[2022-02-05] MEDS: SERTRALINE HCL 50 MG TABLET PO SCH (16:20)
[2022-02-06 06:11] LABS: Hematocrit (blood only) 33.5 % (34.1-44.9); Hemoglobin 10.7 g/dl (12.0-16.0); Mean Corpuscular Hemoglobin 31.5 pg (25.0-34.0); Mean Corpuscular Hgb Conc 31.9 g/dL (32.0-36.0); Mean Corpuscular Volume 98.5 fL (80.0-100.0); Mean Platelet Volume 8.7 fL (9.4-12.3); Platelet Count 330 K/uL (130-400); RDW Coefficient of Variation 12.3 % (11.5-14.5); RDW Standard Deviation 44.7 fL (36.4-46.3); White Blood Count 14.58 K/ul (4.8-10.8)
[2022-02-06 06:31] LABS: BUN Creatinine Ratio 13.9 (10-20); Calcium 8.4 mg/dl (8.5-10.1); Creatinine Clr Calc Pharmacy 37.4 ml/min; Est GFR (African American) 63.1 ml/min; Est GFR (Non-African American) 54.4 ml/min; Potassium 4.5 mmol/L (3.5-5.1)
[2022-02-06] MEDS: LEVOTHYROXINE SODIUM 125 MCG TABLET PO SCH (06:34)
[2022-02-06] MEDS: SERTRALINE HCL 50 MG TABLET PO SCH (07:59)
[2022-02-06] MEDS: ROSUVASTATIN CALCIUM 20 MG TAB PO SCH (07:59)
[2022-02-06] MEDS: ENOXAPARIN INJ 40 MG/0.4 ML SYR SQ SCH (07:59)
[2022-02-06] MEDS: ACETAMINOPHEN 325 MG TAB PO PRN ×2 (07:59→18:30)
[2022-02-06] MEDS: cefTRIAXone SODIUM 1,000 MG in DEXTROSE 5% 50 ML IV SCH (08:00)
[2022-02-06] MEDS: ADVANCED PROBIOTIC 1250 MG CAPSULE PO SCH (08:54)
--- NOTE | 2022-02-06 10:01 | Hospitalist Progress Note ---
Date of Service February 06, 2022 Assessment & Plan (1) Acute pyelonephritis: (2) Leukocytosis: Plan: Patient presented with urinary urgency, frequency, abdominal pain, bilateral flank pain and nausea. Physical exam notable for suprapubic tenderness on bilateral CVA tenderness Labs notable for leukocytosis of 19,000. UA showed 3+ blood, positive leukocyte esterase, 10-[address] noted heterogeneous enhancement of bilateral kidneys with mild bilateral perinephric fat stranding suggestive of bilateral pyelonephritis; and cystitis. Patient has complicated UTI with bilateral pyelonephritis. Patient had leukocytosis but did not meet SIRS criteria for sepsis at this time. Urine culture growing GNR Leukocytosis improving, down to 14K today Follow-up urine culture speciation and sensitivities Continue ceftriaxone (3) Hypertension: Plan: Patient's takes losartan [recently changed from lisinopril for cough by PCP] Reports cough is resolved since changed to losartan. Considering patient's low normal blood pressure, will continue to hold antihypertensive for now and monitor. Will resume as appropriate (4) Hypothyroidism: Plan: Continue levothyroxine (5) Hyperlipidemia: Plan: Continue home rosuvastatin (6) Anxiety: Plan: Per PCPs note, patient had depression and generalized anxiety disorder. Stable Continue home sertraline 150 mg daily (7) DVT prophylaxis: Plan: Lovenox subcu for DVT prophylaxis. Dispo: Med telemetry CODE STATUS: Full code per patient's wishes Admission and Anticipated Discharge Date Admission Date: February 05, 2022 Subjective Patient seen and examined Reports flank pain still present but significantly improved Reports suprapubic pain is resolved Reports urinary freq is improving. No urgency or dysuria Denied fever, chills Denied nausea, vomiting,abd pain, diarrrhea Denied chest pain, cough, SOB Physical Exam Constitutional: + well hydrated; no acute distress Eyes: PERRL, conjunctivae normal, anicteric sclerae ENMT: external ear and nose normal, oropharynx normal Respiratory: normal respiratory effort, lungs clear to auscultation Cardiovascular: Rate/Rhythm: regular rate and regular rhythm S1 S2 Gastrointestinal (Abdomen): normal bowel sounds, soft, nontender, no hepatosplenomegaly Musculoskeletal: no cyanosis or clubbing, extremities motor strength 5/5 Neurologic: PERRL, EOMI, accommodation nl, no face palsy, no dysarthria Psychiatric: A+Ox3, euthymic affect Genitourinary: No CVA tenderness today Results & Data Results & Data ([facility]) Vital Signs (Past 12 Hours) Vital Signs Temp Pulse Pulse Resp BP Pulse Ox O2 Del Method 02/06/22 08:04 37.1 C 64 17 114/69 95 Room Air 02/06/22 07:17 67 02/06/22 03:49 37.0 C 80 18 92/55 L 91 Room Air 02/05/22 23:10 60 02/06/22 00:00 36.7 C 72 18 112/63 95 Room Air Laboratory Results Abnormal lab results 02/06/22 02/06/22 Range/Units 05:41 05:41 WBC 14.58 H (4.8-10.8) K/ul RBC 3.40 L (3.93-5.22) M/uL Hgb 10.7 L (12.0-16.0) g/dl Hct 33.5 L (34.1-44.9) % MCHC 31.9 L (32.0-36.0) g/dL MPV 8.7 L (9.4-12.3) fL Glucose 107 H (70-99(Fasting)) mg/dl Calcium 8.4 L (8.5-10.1) mg/dl
[2022-02-07 06:14] LABS: Hematocrit (blood only) 35.8 % (34.1-44.9); Hemoglobin 11.6 g/dl (12.0-16.0); Mean Corpuscular Hemoglobin 31.4 pg (25.0-34.0); Mean Corpuscular Hgb Conc 32.4 g/dL (32.0-36.0); Mean Platelet Volume 8.7 fL (9.4-12.3); Platelet Count 383 K/uL (130-400); RDW Coefficient of Variation 12.2 % (11.5-14.5); RDW Standard Deviation 43.7 fL (36.4-46.3); Red Blood Count 3.69 M/uL (3.93-5.22); White Blood Count 13.14 K/ul (4.8-10.8)
[2022-02-07] MEDS: LEVOTHYROXINE SODIUM 125 MCG TABLET PO SCH (06:26)
[2022-02-07 06:46] LABS: BUN Creatinine Ratio 13.7 (10-20); Calcium 8.9 mg/dl (8.5-10.1); Creatinine Clr Calc Pharmacy 36.2 ml/min; Est GFR (African American) 62.3 ml/min; Est GFR (Non-African American) 53.8 ml/min; Potassium 4.1 mmol/L (3.5-5.1)
[2022-02-07] MEDS: ENOXAPARIN INJ 40 MG/0.4 ML SYR SQ SCH (08:03)
[2022-02-07] MEDS: ROSUVASTATIN CALCIUM 20 MG TAB PO SCH (08:03)
[2022-02-07] MEDS: SERTRALINE HCL 50 MG TABLET PO SCH (08:03)
[2022-02-07] MEDS: ADVANCED PROBIOTIC 1250 MG CAPSULE PO SCH (08:03)
[2022-02-07] MEDS: cefTRIAXone SODIUM 1,000 MG in DEXTROSE 5% 50 ML IV SCH (08:04)
--- NOTE | 2022-02-07 11:52 | Discharge Summary ---
Date of Service February 07, 2022 Admission HPI Per Admitting Provider 76-year-old woman with history of hypertension, hyperlipidemia, hypothyroidism, depression/YVONNE who presented to the ER complaining of urinary symptoms that started over a week ago. Patient reported that she started having urinary symptoms over a week ago after [place]. She reported urinary symptoms started as urinary urgency and frequency and later associated with lower abdominal pain, mild to moderate, not referred. Denied any fevers or chills. Patient reported that she took Uristat [id number] medication. Subsequently developed some vaginal itching but denied any vaginal discharge for which she took Monistat and it resolved. Denied dysuria, hematuria. Continued to have urinary symptoms. Over the past few days started having bilateral flank pain, described this spasm-like, not referred, associated with nausea. Denied vomiting. Reports weakness. Denied any chest pain, cough, shortness of breath, headache or dizziness Reported some loose stool for the past few days. Denied hematochezia or melena. Patient reports history of urinary tract infection in the past. Last episode was a year ago after the [place] last year. Patient denies smoking, alcohol or illicit drug use Reports history of section and cataract surgeries. Reports family history of heart disease in the father and stroke in the mom. Admission Exam Per Admitting Provider Constitutional: + well hydrated; no acute distress Elde rly woman Eyes: PERRL, conjunctivae normal, anicteric sclerae ENMT: external ear and nose normal, oropharynx normal Respiratory: normal respiratory effort, lungs clear to auscultation Cardiovascular: Rate/Rhythm: regular rate and regular rhythm S1-S2 Gastrointestinal (Abdomen): Abdomen is soft, nondistended, normal bowel sounds. Suprapubic tenderness Musculoskeletal: no cyanosis or clubbing, extremities motor strength 5/5 No pedal edema Neurologic: PERRL, EOMI, accommodation nl, no face palsy, no dysarthria Psychiatric: A+Ox3, euthymic affect Genitourinary: Bilateral CVA tenderness Principal Diagnosis Complicated urinary tract infection Bilateral pyelonephritis Discharge Exam Constitutional + well hydrated; no acute distress Eyes PERRL, conjunctivae normal, anicteric sclerae ENMT external ear and nose normal, oropharynx normal Respiratory normal respiratory effort, lungs clear to auscultation Cardiovascular Rate/Rhythm: regular rate and regular rhythm S1 S2 Gastrointestinal (Abdomen) normal bowel sounds, soft, nontender, no hepatosplenomegaly Musculoskeletal no cyanosis or clubbing, extremities motor strength 5/5 Neurologic PERRL, EOMI, accommodation nl, no face palsy, no dysarthria Psychiatric A+Ox3, euthymic affect Genitourinary No CVA tenderness Discharge Data Allergies Allergy/AdvReac Type Severity Reaction Status Date / Time cat dander Allergy Severe sneezing Verified 01/29/19 08:06 wheezing itching astemizole Allergy Mild SWELLING Verified 01/29/19 08:06 THROAT AND RINGING IN EARS Consultations 02/05/22 08:07 ED Decision to Admit Stat Ordered Studies 02/05/22 05:47 CT abd pelvis IV con only Stat The lung bases are essentially clear. No pneumoperitoneum. No pneumatosis. Dextroscoliosis and degenerative changes again noted within the lumbar spine. Stable 1.2 cm cyst within the right hepatic lobe. The gallbladder, spleen, and adrenal glands unremarkable. There is a stable 8 mm hypodense lesion within the uncinate process of the pancreas. This favors a side branch intraductal papillary mucinous neoplasm given the long-term stability. Moderate calcified plaque within the normal caliber abdominal aorta. No retroperitoneal lymphadenopathy. Prior hysterectomy. Mild bladder wall thickening. No ureteral stones. No hydronephrosis. Heterogeneous enhancement of the bilateral kidneys wi th mild bilateral perinephric fat stranding and urothelial thickening within the bilateral ureters. This is most pronounced on the right and is consistent with a bilateral pyelonephritis/pyelitis. The main portal vein is patent. Colonic diverticulosis. No evidence for acute diverticulitis. No bowel wall thickening or obstruction. Normal appendix. IMPRESSION: 1. Heterogeneous enhancement of the bilateral kidneys with mild bilateral perinephric fat stranding. This is most pronounced on the right and favors a bilateral pyelonephritis. Recommend correlation with urinalysis. 2. Mild bladder wall thickening likely representing a cystitis. 3. No bowel wall thickening or obstruction. 4. Colonic diverticulosis. No evidence for acute diverticulitis. 5. Additional findings as described above. Hospital Course (1) Acute pyelonephritis: (2) Leukocytosis: Patient presented with urinary urgency, frequency, abdominal pain, bilateral flank pain and nausea. Physical exam notable for suprapubic tenderness on bilateral CVA tenderness Labs notable for leukocytosis of 19,000. UA showed 3+ blood, positive leukocyte esterase, 10-[address] noted heterogeneous enhancement of bilateral kidneys with mild bilateral perinephric fat stranding suggestive of bilateral pyelonephritis; and cystitis. Patient has complicated UTI with bilateral pyelonephritis. Patient had leukocytosis but did not meet SIRS criteria for sepsis at this time. Patient was started on IV ceftriaxone Urine culture grew pansensitive E coli Leukocytosis improving, down to 13K today Patient discharged on cefdinir po to complete 7 days of antibiotic treatment (3) Hypertension: Patient's takes losartan [recently changed from lisinopril for cough by PCP] Reports cough is resolved since changed to losartan. Considering patient's low normal blood pressure on presentation, antihypertensive was initially held BP running high normal today. Resume home losartan (4) Hypothyroidism: Continue levothyroxine (5) Hyperlipidemia: Continue home rosuvastatin (6) Anxiety: Per PCPs note, patient had depression and generalized anxiety disorder. Stable Continue home sertraline 150 mg daily Total Time Total Time Spent Total Time Spent (In Minutes): 35 Total Time Includes: Examination of the Patient, Discharge Planning and Medication Reconciliation Discharge Plan Discharge Items Patient Disposition: Home - Self-Care Reason For Visit: UTI Discharge Diagnosis: Complicated urinary tract infection Bilateral pyelonephritis Activity: Resume your previous activity Non-emergency contact: Primary Care Provider Call non-emergency contact if: you have any medication questions and your symptoms worsen Follow-up/Referrals: Katarzyna Escobar DO [Primary Care Provider] - Diet: Heart Healthy Addtl Attending Provider Instructions: Mrs Burris. You came to the hospital complaining of flank pain and urinary symptoms. You were evaluated and found to have urinary tract infections. You were started on IV antibiotics. Your symptoms are resolved. You are being discharged on oral antibiotics to complete treatment. Please ensure follow up with your Primary Doctor. It was a pleasure taking care of you. Pending Studies at Discharge: No Stand-Alone Forms: My Xockets, Smoking Cessation Medications and DC Order Prescriptions: New cefdinir 300 mg capsule 300 mg PO BID 4 Days Qty: 8 0RF Rx Instructions: Starting on 02/08/22 Continued sertraline 100 mg tablet 150 mg PO DAILY levothyroxine 125 mcg tablet 125 mcg PO DAILY losartan 50 mg tablet 50 mg PO DAILY valacyclovir 1 gram Tablet 1 mg PO TID PRN (Reason: Rash) Rx Instructions: PRN shingle flare lorazepam 0.5 mg tablet 0.5 mg PO HS PRN (Reason: Anxiety) cyclobenzaprine 5 mg tablet 5 mg PO HS PRN (Reason: Muscle Spasm) rosuvastatin 40 mg tablet 40 mg PO DAILY Discharge Orders: Discharge Order (Routine); Ordered 02/07/22 Ordered By: Marlena Adler Admission Data Admit Date/Time: 02/06/22 10:01 Attending Provider: Marlena Adler I. Admit Provider: Marlena Adler I. Primary Care Provider: Katarzyna Escobar Other Providers: Marlena Adler I. Other Interventions: Discharge Summary Assessment (RN) Last Done: 02/07/22 10:48
== END 2022-02-07 12:46 | disposition home or self-care (01) | DRG 690 ==
LOC: 2N 05:39 → ED 05:39 → 2N 12:08

== ENCOUNTER 2023-12-08 23:45 | Observation (INO) ==
--- OUTSIDE RECORDS SUMMARY | 2023-12-08 23:53 | External Medical Summary | Summary of Care ---
Author Name Unknown Organization [facility] Address [address] [address] Phone [phone] Care Team Providers Care Probation And Parole Officer Name Role Phone Katarzyna Escobar DO Primary Care Provider Encounter Details Date Type Department Care Team (Late st Contact Info) Description 07/31/2023 Orders Only PATIENT PORTAL DO NOT DELETE THIS DEPT USED BY [place] [id number] Allergies Active Allergy Reactions Criticality Noted Date Comments Other - Drugs Tachycardia 08/17/2010 Hismanol documented as of this encounter (statuses as of 07/31/2023) Medications Medication Sig Dispensed Refills Start Date End Date Status Cyclobenzaprine HCl 5 MG Oral Tablet (Flexeril)Indications:Fib romyalgia Take 1 Tab by mouth at bedtime as needed for Muscle spasms. 90 Tab 0 1 Active valACYclovir HCl 1 GM Oral Tablet (Valtrex)Indications:Post herpetic neuralgia Taking as needed for post herpetic neuralgia 21 Tablet 0 2 Active Ubiquinol 300 MG Oral CapsuleIndications:HTN, goal below 140/90,Hyperlipidemia with target LDL less than 100 Take 300 mg by mouth daily. 100 Capsule 3 3 Active Sertraline HCl 100 MG Oral Tablet (Zoloft)Indications:Depre ssion with anxiety 1 1/2 tabs daily 135 Tablet 3 3 Active [place]-3 Fish Oil 1000 MG Oral Capsule ([place]-3)Indications:Gene ralized osteoarthritis Take 1 Capsule by mouth in the morning. 100 Capsule 3 3 Active Rosuvastatin Calcium 40 MG Oral Tablet (Crestor)Indications:Pure hypercholesterolemia Take 1 Tablet by mouth in the morning. 90 Tablet 1 3 Active Levothyroxine Sodium 112 MCG Oral Tablet (Levoxyl) Take 1 Tablet by mouth in the morning. (at least 30 min prior to breakfast or other meds). 90 Tablet 1 3 Active Losartan Potassium 50 MG Oral Tablet (Cozaar)Indications:HTN, goal below 140/90 Take 1 Tablet by mouth in the morning. In the morning.. 90 Tablet 1 3 Active LORazepam 0.5 MG Oral Tablet (Ativan)Indications:Depre ssion with anxiety Take 1 Tablet by mouth at bedtime as needed for Anxiety. 30 Tablet 0 3 Active Cefdinir 300 MG Oral Capsule (Omnicef) Take 1 Capsule by mouth in the morning and 1 Capsule before bedtime. 0 4 Active Ondansetron 4 MG Oral Tablet Disintegrating (Zofran) Place 1 Tablet on tongue every 6 hours as needed for Nausea or Vomiting. 0 4 Active Ciprofloxacin HCl 250 MG Oral Tablet (Cipro)Indications:Recurr ent UTI Take 1 Tablet by mouth in the morning and 1 Tablet before bedtime. Do all this for 10 days. With recurrent UTI. 20 Tablet 0 4 08/03/19 24 Active Premarin 0.625 MG/GM Vaginal Cream (Estrogens Conjugated)Indications:Re current UTI Administer 0.5 g into the vagina at bedtime. As directed. Three times per week 42.5 g 5 4 Active documented as of this encounter (statuses as of 07/31/2023) Active Problems Problem Noted Date Diagnosed Date YVONNE (generalized anxiety disorder) 09/20/2021 Seasonal allergic rhinitis due to pollen 022 Gastroesophageal reflux disease without esophagi tis 02/07/2019 Moderate episode of recurrent major depressive d isorder 08/18/2017 Moderate persistent asthma without complication 08/18/2017 Family history of ischemic heart disease 016 Family history of abdominal aortic aneurysm (AAA ) 08/04/2015 Eczema 08/04/2014 Generalized osteoarthritis 08/04/2014 Hyperlipidemia with target LDL less than 100 08/ Chronic rhinitis 06/24/2002 Hypothyroidism 02/03/1999 HTN, goal below 140/90 Irritable bowel syndrome Mitral valve prolapse documented as of this encounter (statuses as of 07/31/2023) Resolved Problems Problem Noted Date Diagnosed Date Resolved Date Routine medical exam 05/08/2008 012 ADVANCE DIRECTIVE INFORMATION 04/22/2008 08/18/2017 Overview: No, Advance Directive brochure given to patient. Alcoholism in family 02/14/2005 019 Dyslipidemia, goal to be determined 06/24/2002 01/31/2012 Need for prophylactic hormon e replacement therapy (postmenopausal) 02/03/1999 11/06/2014 Major depressive disorder 02/03/1999 Overview: ICD-10 update of inactive term Menopause 11/06/2014 Myalgia and myositis 019 documented as of this encounter (statuses as of 07/31/2023) Immunizations Name Administration Dates Next Due COVID-19 mRNA, LNP-s, No Pre serve, 2-Dose Series (Moderna) 08/01/2020,06/27/2020 COVID-19, MRNA-LNP, 23-24, P F, 30 MCG/0.3 mL, 12 YRS AND ABOVE, IM [facility] 03/10/2023 COVID-19, mRNA, LNP-s, PF, B ooster, 100mcg/0.5mg (Moderna) 09/18/2021,04/01/2021 Pneumococcal Conjugate Vacc, 13 Valent (Prevnar) 07/04/2014 Pneumococcal Polysaccharide PPV23 (Pneumovax) 08/18/2017,06/08/2010 Seasonal Influenza Virus Vac cine, Unspecified Formulation 03/10/2023 Seasonal Influenza, PF, 6 M & above, IM , (FluLaval or Fluzone) 02/07/2019,03/08/2017 Seasonal Influenza, Quadriva lent Hd (Fluzone Hd) 03/12/2021 Seasonal Influenza, Quadriva lent, No Preserve, IM 02/26/2016,07/13/2015 Seasonal Influenza, Split, I IV3, With Preserve, Inj 07/04/2014,03/20/2013,04/05/2011,09/2010,03/05/2008 TDAP (age 10 and older)(Boostrix) 11/01/2022 TDAP (age 11 and older)(Adacel) 10/14/2009 10/15/2019 Varicella Zoster Vaccine (Adult) 015,07/04/2014(Deferred: Contraindication) Zoster Vaccine Recombinant (Shingrix) 02/18/2022 ,09/20/2021 documented as of this encounter Social History Tobacco Use Types Packs/Day Years Used Date Smoking Tobacco: Never Smokeless Tobacco: Never Alcohol Use Standard Drinks/Week Comments Yes 0 (1 standard drink = 0.6 oz pur e alcohol) occ Sex and Gender Information Value Date Recorded Sex Assigned at Not on file Gender Identity Not on file Sexual Orientation Not on file Job Start Date Occupation Industry Not on file Not on file Not on file documented as of this encounter Plan of Treatment Upcoming Encounters Date Type Department Care Team (Late st Contact Info) Description 09/21/2023 10:00 AM EDT Imaging Radiology [address] [facility] [place] [address] 12/25/2023 6:00 PM EDT Office Visit Family Practice [facility] [address] [facility] [place] [address] Katarzyna Escobar, [address] [facility] [place] [address] Health Maintenance Due Date Last Done Comments Hepatitis C Screening 1963 Depression Screening 01/13/2018 01/13/2017 GFR 01/31/2024 01/30/2023, 12/04, 02/05/2021, Additional history exists TSH 01/31/2024 01/30/2023, 12/04, 02/05/2021, Additional history exists Albumin/Creatinine Ratio 12/31/2024 022, 10/05/2018, 04/27/2018 DTaP,Tdap,and Td Vaccines (3 - Td or Tdap) 11/01/2032 11/01/2022, 10/14/2009, 03/30/2000 Sigmoidoscopy Discontinued 08/28/2001 Colonoscopy Discontinued 04/29/2013, 04/29/2013 Colorectal Cancer Screening Discontinued Pneumococcal Vaccine: 65+ Years Completed 08/18/2017, 07/04/2014, 06/08/2010 Zoster Vaccines Completed 02/18/2022, 09/03, 08/04/2014 COVID-19 Vaccine Completed 03/10/2023, , 04/01/2021, Additional history exists Influenza Vaccine (FLU shot) Completed 03/10/2023, 03/12/2021, 02/07/2019, Additional history exists Cologuard Discontinued Fecal Occult Blood Test Discontinued GARDASIL-HPV IMMUNIZATION SERIES Aged Out No longer eligible based on patient's age to complete this topic Hepatitis B Aged Out No longer eligi ble based on patient's age to complete this topic MENINGOCOCCAL (MENACTRA/MENVEO) Aged Out No longer eligible based on patient's age to complete this topic documented as of this encounter Medical Devices Not on filedocumented as of this encounter Care Teams Probation And Parole Officer Relationship Specialty Start Date End Date Katarzyna Escobar DO [address] [place] [address] PCP - General Family Medicine 07/04/14 documented as of this encounter
--- OUTSIDE RECORDS SUMMARY | 2023-12-08 23:53 | External Medical Summary | Summary of Care ---
Author Name Unknown Organization [facility] Address [address] [place] [address] Phone [phone] Care Team Providers Care Baby Counselor Name Role Phone Katarzyna Escobar DO Primary Care Provider Encounter Details Date Type Department Care Team (Late st Contact Info) Description 08/22/2023 Orders Only Family Practice [facility] [place] [address] [place] [address] Katarzyna Escobar DO [address] [facility] [place] [address] Allergies Active Allergy Reactions Criticality Noted Date Comments Other - Drugs Tachycardia 08/17/2010 Hismanol documented as of this encounter (statuses as of 08/22/2023) Medications Medication Sig Dispensed Refills Start Date [...] tabs daily 135 Tablet 3 3 Active [place]-3 Fish Oil 1000 MG Oral Capsule ([place]-3)Indications:Gene ralized osteoarthritis Take 1 Capsule by mouth [...] for Nausea or Vomiting. 0 4 Active Premarin 0.625 MG/GM Vaginal Cream (Estrogens Conjugated)Indications:Re current UTI Administer 0.5 g into the vagina at bedtime. As directed. Three times per week 42.5 g 5 4 Active documented as of this encounter (statuses as of 08/22/2023) Active Problems Problem Noted Date Diagnosed Date [...] Hyperlipidemia with target LDL less than 100 Chronic rhinitis 06/24/2002 Hypothyroidism 02/03/1999 HTN, goal below 140/90 Irritable bowel syndrome Mitral valve prolapse documented as of this encounter (statuses as of 08/22/2023) Resolved Problems Problem Noted Date Diagnosed Date [...] as of this encounter (statuses as of 08/22/2023) Immunizations Name Administration Dates Next Due COVID-19 mRNA, LNP-s, No Pre serve, 2-Dose Series (Moderna) 08/01/2020,06/27/2020 COVID-19, MRNA-LNP, 23-24, P F, 30 MCG/0.3 mL, 12 YRS AND ABOVE, IM ([facility]) 03/10/2023 COVID-19, mRNA, LNP-s, PF, B ooster, [...] Description 09/21/2023 10:00 AM EDT Imaging Radiology [address] [facility] [place] [address] 12/25/2023 6:00 PM EDT Office Visit Family Practice [facility] [address] [facility] [place] [address] Katarzyna Escobar, [address] [facility] [place] [address] Health Maintenance Due Date Last Done Comments Hepatitis C Screening 1963 Depression Screening 01/13/2018 01/13/2017 GFR 01/31/2024 01/30/2023, 12/04, 02/05/2021, Additional history exists TSH 01/31/2024 08/18/2023, 01/04, 12/31/2021, Additional history exists Albumin/Creatinine Ratio 12/31/2024 022, [...] Not on filedocumented as of this encounter Procedures Procedure Name Priority Date/Time Associated Diagnosis Comments TSH Routine 08/18/2023 documented in this encounter Results * TSH (08/18/2023) TSH - OUTSIDE LAB 1.10 0.40 - 4.50 [facility]/L OUTSIDE LAB (SEE SCANNED REPORT) Blood Venous blood specimen / Unknown 08/18/2023 Katarzyna Escobar DO LAB BLOOD ORDER [facility] OUTSIDE LAB (SEE SCANNED REPORT) documented in this encounter Care Teams Baby Counselor Relationship Specialty Start Date End Date Katarzyna Escobar DO [address] [place] [address] PCP - General Family Medicine 07/04/14 documented as of this encounter
--- OUTSIDE RECORDS SUMMARY | 2023-12-08 23:53 | External Medical Summary | Summary of Care ---
Author Name Unknown Organization [facility] Address [address] [facility] [address] Phone [phone] Care Team Providers Care Engineering Intern Name Role Phone Katarzyna Escobar DO Primary Care Provider Reason for Visit * Reason Comments Emergency Department Follow-Up Encounter Details Date Type Department Care Team (Late st Contact Info) Description 07/24/2023 11:20 AM EST Office Visit Family 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 90 Tab 0 1 Active valACYclovir HCl 1 GM Oral Tablet (Valtrex)Indications:Pos t herpetic neuralgia Taking as needed for post herpetic neuralgia 21 Tablet 0 2 Active Ubiquinol 300 MG Oral CapsuleIndications:HTN, goal below 140/90,Hyperlipidemia with target LDL less than 100 Take 300 mg by mouth daily. 100 Capsule 3 3 Active Sertraline HCl 100 MG Oral Tablet (Zoloft)Indications:Depr ession with anxiety 1 1/2 tabs daily 135 Tablet 3 3 Active [place]-3 Fish Oil 1000 MG Oral Capsule ([place]-3)Indications:Gen eralized osteoarthritis Take 1 Capsule by mouth in the morning. 100 Capsule 3 3 Active Rosuvastatin Calcium 40 MG Oral Tablet (Crestor)Indications:Pur e hypercholesterolemia Take 1 Tablet by mouth in [...] 3 Active LORazepam 0.5 MG Oral Tablet (Ativan)Indications:Depr ession with anxiety Take 1 Tablet by mouth [...] Active Ciprofloxacin HCl 250 MG Oral Tablet (Cipro)Indications:Recur rent UTI Take 1 Tablet by mouth in the morning and 1 Tablet before bedtime. Do all this for 10 days. With recurrent UTI. 20 Tablet 0 4 08/03/19 24 Active Premarin 0.625 MG/GM Vaginal Cream (Estrogens Conjugated)Indications:R ecurrent UTI Administer 0.5 g into the vagina at bedtime. As directed. Three times per week 42.5 g 5 4 Active Nitrofurantoin Monohyd Macro 100 MG Oral Capsule (Macrobid) Take 1 Capsule by mouth in the morning and 1 Capsule before bedtime. 14 Capsule 0 4 07/24/19 24 Discontin ued(Medic ation List Clean Up) documented as of this encounter (statuses as of 07/24/2023) Active Problems Problem Noted Date Diagnosed Date [...] as of this encounter (statuses as of 07/24/2023) Resolved Problems Problem Noted Date Diagnosed Date [...] as of this encounter (statuses as of 07/24/2023) Immunizations Name Administration Dates Next Due COVID-19 mRNA, LNP-s, No Pre serve, 2-Dose Series (Moderna) 08/01/2020,06/27/2020 COVID-19, MRNA-LNP, 23-24, P F, 30 MCG/0.3 mL, 12 YRS AND ABOVE, IM (PFIZER-Comirnaty) 03/10/2023 COVID-19, mRNA, LNP-s, PF, B ooster, [...] on file documented as of this encounter Last Filed Vital Signs Vital Sign Reading Time Taken Comments Blood Pressure 126/78 07/24/2023 11:07 AM EST Pulse 78 07/24/2023 11:07 AM EST Temperature 36.7 C (98.1 F) 07/24/2023 11:[address] Respiratory Rate 18 07/24/2023 11:07 AM EST Oxygen Saturation 96% 07/24/2023 11:07 AM EST Inhaled Oxygen Concentration - - Weight 56.7 kg (125 lb) 07/24/2023 11:07 AM EST Height - - Body Mass Index 25.23 11/01/2022 4:46 PM EDT documented in this encounter Patient Instructions * Patient Instructions* Katarzyna Escobar DO - 07/24/2023 11:43 AM EST If symptoms of UTI, start Cipro 250mg twice daily for three days, and notify office. Urinalysis and culture If symptoms start going to back OR if fevers/ chills, call for nurse appt for Rocephin./ To avoid recurrent pyelonephritis documented in this encounter Progress Notes * Katarzyna Escobar DO - 07/24/2023 11:46 AM EST Subjective: Juana Burris is a 77 year old female. Chief Complaint Patient presents with Emergency Department Follow-Up HPI: [facility] ER f/u from 07/08/23. Hospital records, labs, studies, and discharge instructions reviewed with patient Recurrent UTI- 06/27/2023, culture showed pansensitive E. Coli. Took macrobid. Buhl better for a week but the symptoms came back, Then went to urgent care, given keflex. Then felt worse Superbowl Monday, symptoms going to back, like when she had pyelo before, went to ED. Had elevated WBC, pyelo on CT, given IV rocephin x 1, had N.v from medication, zofran, felt better and wanted to go home insteadof being admitted. PHM: Patient Active Problem List Diagnosis Code Hypothyroidism E03.9 Chronic rhinitis J31.0 HTN, goal below 140/90 I10 Irritable bowel syndrome K58.9 Mitral valve prolapse I34.1 Hyperlipidemia with target LDL less than 100 E78.5 Eczema L30.9 Generalized osteoarthritis M15.9 Family history of ischemic heart disease Z82.49 Family history of abdominal aortic aneurysm (AAA) Z82.49 Moderate episode of recurrent major depressive disorder (HCC) F33.1 Moderate persistent asthma without complication J45.40 Gastroesophageal reflux disease without esophagitis K21.9 YVONNE (generalized anxiety disorder) F41.1 Seasonal allergic rhinitis due to pollen J30.1 Outpatient Medications Prior to Visit Medication Sig Dispense Refill Cefdinir 300 MG Oral Capsule (Omnicef) Take 1 Capsule by mouth in the morning and 1 Capsule before bedtime. Ondansetron 4 MG Oral Tablet Disintegrating (Zofran) Place 1 Tablet on tongue every 6 hours as needed for Nausea or Vomiting. [DISCONTINUED] Nitrofurantoin Monohyd Macro 100 MG Oral Capsule (Macrobid) Take 1 Capsule by mouth in the morning and 1 Capsule before bedtime. 14 Capsule 0 LORazepam 0.5 MG Oral Tablet (Ativan) Take 1 Tablet by mouth at bedtime as needed for Anxiety. 30 Tablet 0 Levothyroxine Sodium 112 MCG Oral Tablet (Levoxyl) Take 1 Tablet by mouth in the morning. (at least30 min prior to breakfast or other meds). 90 Tablet 1 Losartan Potassium 50 MG Oral Tablet (Cozaar) Take 1 Tablet by mouth in the morning. In the morning.. 90 Tablet 1 Rosuvastatin Calcium 40 MG Oral Tablet (Crestor) Take 1 Tablet by mouth in the morning. 90 Tablet 1 [place]-3 Fish Oil 1000 MG Oral Capsule ([place]-3) Take 1 Capsule by mouth in the morning. 100 Capsule3 Sertraline HCl 100 MG Oral Tablet (Zoloft) 1 1/2 tabs daily 135 Tablet 3 Ubiquinol 300 MG Oral Capsule Take 300 mg by mouth daily. 100 Capsule 3 valACYclovir HCl 1 GM Oral Tablet (Valtrex) Taking as needed for post herpetic neuralgia 21 Tablet 0 Cyclobenzaprine HCl 5 MG Oral Tablet (Flexeril) Take 1 Tab by mouth at bedtime as needed for Musclespasms. 90 Tab 0 No facility-administered medications prior to visit. Last reviewed on 07/24/2023 11:57 AM by Katarzyna Escobar DO Review of patient's allergies indicates: Allergen Reactions Other - Drugs Tachycardia Hismanol Objective: BP 126/78 | Pulse 78 | Temp 36.7 C (98.1 F) (Tympanic) | Resp 18 | Wt 56.7 kg (125 lb) | SpO2 96% | BMI 25.23 kg/m | BSA 1.54 m Physical Exam: General: alert, healthy, and no distress Head: Normocephalic, No masses, lesions, tenderness or abnormalities Pansensitive E coli ASSESSMENT/PLAN: Recurrent UTIs 2-3 x per year. Recurrent pyelonephritis (x2). Will start aggressive treatment for UTI prevention. If symptoms of UTI, start Cipro 250mg twice daily for three days, and notify office. Urinalysis and culture- before starting antibiotics, standing order If symptoms start going to back like pyelo OR if fevers/ chills, call for nurse appt for Rocephin./ Recurrent UTI (Primary) - Ciprofloxacin HCl 250 MG Oral Tablet (Cipro); Take 1 Tablet by mouth in the morning and 1 Tablet before bedtime. Do all this for 10 days. With recurrent UTI. - CULTURE, URINE, QUANTITATIVE; Standing - Premarin 0.625 MG/GM Vaginal Cream (Estrogens Conjugated); Administer 0.5 g into the vagina at bedtime. As directed. 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 | For: Clinic Visit | Check-out note: Print lab order 30 min spent with patient, reviewing history, performing physical exam, reviewing labs, studies, specialist OVNs, and reports, educating and coordinating care, discussing treatment Katarzyna Escobar DO documented in this encounter Nursing Notes * Joana Escalante LPN - 07/24/2023 11:02 AM EST Juana Behzad Burris presents for ED follow up. Medications & HM reviewed. documented in this encounter Plan of Treatment Upcoming Encounters Date Type Department Care Team (Late st Contact Info) Description 09/21/2023 10:00 AM EDT Imaging Radiology [facility] [place] [employer] [address] [facility] [place] [address] 12/25/2023 6:00 PM EDT Office Visit Family Practice [facility] [employer] [address] [facility] [place] [address] Katarzyna Escobar DO [address] [facility] [place] [address] Scheduled Orders Name Type Priority Associated Diagnoses Orde r Schedule CULTURE, URINE, QUANTITATIVE Lab Routine Recurrent UTI Every Month for 10 Occurrences starting 07/24/2023 until 07/24/2024 TSH WITH FREE T4 IF INDICATED Lab Routine 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
--- OUTSIDE RECORDS SUMMARY | 2023-12-08 23:53 | External Medical Summary | Summary of Care ---
Author Name Unknown Organization [facility] Address [address] [place] [address] Phone [phone] Care Team Providers Care Septic Tank Cleaner Name Role Phone Johnpurnima Katarzyna Lee DO Primary Care Provider Encounter Details Date Type Department Care Team (Late st Contact Info) Description 11/13/2023 Orders Only Outcomes Research Department [address] [place], [place] [id number] Rosa Valencia [facility] [employer] [facility] Other*[id number] Allergies Active Allergy Reactions Criticality Noted Date Comments Other - Drugs Tachycardia 08/17/2010 Hismanol documented as of this encounter (statuses as of 11/13/2023) Medications Medication Sig Dispensed Refills Start Date End Date Status Cyclobenzaprine HCl 5 MG Oral Tablet (Flexeril)Indications:Fib romyalgia Take 1 Tab by mouth at bedtime as needed for Muscle spasms. 90 Tab 1 Active valACYclovir HCl 1 GM Oral Tablet (Valtrex)Indications:Post herpetic neuralgia Taking as needed for post herpetic neuralgia 21 Tablet 2 Active Ubiquinol 300 MG Oral CapsuleIndications:HTN, goal below 140/90,Hyperlipidemia with target LDL less than 100 Take 300 mg by mouth daily. 100 Capsule 3 3 Active Sertraline HCl 100 MG Oral Tablet (Zoloft)Indications:Depre ssion with anxiety 1 1/2 tabs daily 135 Tablet 3 3 Active [place]-3 Fish Oil 1000 MG Oral Capsule ([place]-3)Indications:Gene ralized osteoarthritis Take 1 Capsule by mouth [...] bedtime as needed for Anxiety. 30 Tablet 3 Active Cefdinir 300 MG Oral Capsule (Omnicef) Take 1 Capsule by mouth in the morning and 1 Capsule before bedtime. 4 Active Ondansetron 4 MG Oral Tablet Disintegrating (Zofran) Place 1 Tablet on tongue every 6 hours as needed for Nausea or Vomiting. 4 Active Premarin 0.625 MG/GM Vaginal Cream (Estrogens Conjugated)Indications:Re current UTI Administer 0.5 g into the vagina at bedtime. As directed. Three times per week 42.5 g 5 4 Active documented as of this encounter (statuses as of 11/13/2023) Active Problems Problem Noted Date Diagnosed Date [...] as of this encounter (statuses as of 11/13/2023) Resolved Problems Problem Noted Date Diagnosed Date [...] as of this encounter (statuses as of 11/13/2023) Immunizations Name Administration Dates Next Due COVID-19 [...] 07/04/2014,03/20/2013,04/05/2011,09/2010,03/05/2008 TDAP (age 10 and older)(Boostrix) 11/01/2022 TDAP, Age 7 and older, IM (Adacel) 10/14/2009 10/15/2019 Varicella Zoster Vaccine (Adult) 015,07/04/2014(Deferred: [...] Care Team (Late st Contact Info) Description 12/25/2023 6:00 PM EDT Office Visit Family Practice [facility] [address] [facility] [place] [address] Katarzyna Escobar DO [address] [facility] [place] [address] Scheduled Orders Name Type Priority Associated Diagnoses Orde r Schedule MYCODE INITIAL ADULT Lab Routine [facility] Research Other*[id number] Expected: 11/13/2023 (Approximate), Expires: 12/02/2024 Health Maintenance Due Date Last Done Comments Hepatitis C Screening 1963 COVID-19 Vaccine ( season) 2023 03/10/2023, 09/18/2021, 04/01/2021, Additional history exists GFR 01/31/2024 01/30/2023, 12/04, 02/05/2021, Additional history exists TSH 08/17/2024 08/18/2023, 01/04, 12/31/2021, Additional history exists Albumin/Creatinine Ratio 12/31/2024 022, 10/05/2018, 04/27/2018 DTaP,Tdap,and Td Vaccines (3 - Td or Tdap) 11/01/2032 11/01/2022, 10/14/2009, 03/30/2000 Sigmoidoscopy Discontinued 08/28/2001 Colonoscopy Discontinued 04/29/2013, 04/29/2013 Colorectal Cancer Screening Discontinued Pneumococcal Vaccine: 65+ Years Completed 08/18/2017, 07/04/2014, 06/08/2010 Zoster Vaccines Completed 02/18/2022, 09/03, 08/04/2014 Influenza Vaccine (FLU shot) Completed 03/10/2023, 03/12/2021, [...] as of this encounter Visit Diagnoses Diagnosis [facility] Other*[id number] documented in this encounter Care Teams Septic Tank Cleaner Relationship Specialty Start Date End Date Katarzyna Escobar DO [address] [place] [address] PCP - General Family Medicine 07/04/14 documented as of this encounter
--- OUTSIDE RECORDS SUMMARY | 2023-12-08 23:53 | External Medical Summary | Summary of Care ---
Author Name Unknown Organization [facility] Address [address] [place] [address] Phone [phone] Care Team Providers Care Asian Studies Professor Name Role Phone Katarzyna Escobar DO Primary Care Provider Encounter Details Date Type Department Care Team (Late st Contact Info) Description 08/18/2023 Result Scan Unspecified Department Katarzyna Escobar DO [address] [place] [address] <No scans attached> Allergies Active Allergy Reactions Criticality Noted Date [...] tabs daily 135 Tablet 3 3 Active [place]-3 Fish Oil 1000 MG Oral Capsule ([place]-3)Indications:Gene ralized osteoarthritis Take 1 Capsule by mouth [...] MCG/0.3 mL, 12 YRS AND ABOVE, IM (eduClipper-Comirnat) 03/10/2023 COVID-19, mRNA, LNP-s, PF, B ooster, [...] Description 09/21/2023 10:00 AM EDT Imaging Radiology [address] [facility] [place] [address] 12/25/2023 6:00 PM EDT Office Visit Family Practice [facility] [address] [facility] [address] Katarzyna Escobar, [address] [facility] [place] [address] Health Maintenance Due Date Last Done Comments [...] Procedure Name Priority Date/Time Associated Diagnosis Comments OUTSIDE LAB RESULTS 08/18/2023 documented in this encounter Results * OUTSIDE LAB RESULTS (08/18/2023) 08/18/2023 Katarzyna Escobar DO LABORATORY documented in this encounter Care Teams Asian Studies Professor Relationship Specialty Start Date End Date Katarzyna Escobar DO [address] [place] [address] PCP - General Family Medicine 07/04/14 documented as of this encounter
--- OUTSIDE RECORDS SUMMARY | 2023-12-08 23:53 | External Medical Summary | Summary of Care ---
Author Name Unknown Organization [facility] Address [address] [place] [address] Phone [phone] Care Team Providers Care Prep Cook Name Role Phone Nilay Escobar DO Primary Care Provider Reason for Visit * Reason Onset Date Comments Medication Refill 11/21/2023 Encounter Details Date Type Department Care Team (Late st Contact Info) Description 11/21/2023 Refill Family Practice [facility] [place] [address] [facility] [place] [address] Nilay Escobar DO [address] [place] [address] Depression with anxiety; Pure hypercholesterolemia; HTN, goal below 140/90 Allergies Active Allergy Reactions Criticality Noted Date Comments Other - Drugs Tachycardia 08/17/2010 Hismanol documented as of this encounter (statuses as of 11/22/2023) Medications Medication Sig Dispensed Refills Start Date [...] mouth daily. 100 Capsule 3 3 Active [place]-3 Fish Oil 1000 MG Oral Capsule ([place]-3)Indications:Gen eralized osteoarthritis Take 1 Capsule by mouth in the morning. 100 Capsule 3 3 Active LORazepam 0.5 MG Oral Tablet [...] per week 42.5 g 5 4 Active Sertraline HCl 100 MG Oral Tablet (Zoloft)Indications:Depr ession with anxiety Take 1 1/2 tablets by mouth daily 135 Tablet 3 4 Active Rosuvastatin Calcium 40 MG Oral Tablet (Crestor)Indications:Pur e hypercholesterolemia Take 1 Tablet by mouth in the morning. 90 Tablet 1 4 Active Levothyroxine Sodium 112 MCG Oral Tablet (Levoxyl) Take 1 Tablet by mouth in the morning. (at least 30 min prior to breakfast or other meds). 90 Tablet 3 4 Active Losartan Potassium 50 MG Oral Tablet (Cozaar)Indications:HTN, goal below 140/90 Take 1 Tablet by mouth in the morning. 90 Tablet 3 4 Active Sertraline HCl 100 MG Oral Tablet (Zoloft)Indications:Depr ession with anxiety 1 1/2 tabs daily 135 Tablet 3 3 11/21/19 24 Discontin ued(Refil l) Rosuvastatin Calcium 40 MG Oral Tablet (Crestor)Indications:Pur e hypercholesterolemia Take 1 Tablet by mouth in the morning. 90 Tablet 1 3 11/21/19 24 Discontin ued(Refil l) Levothyroxine Sodium 112 MCG Oral Tablet (Levoxyl) Take 1 Tablet by mouth in the morning. (at least 30 min prior to breakfast or other meds). 90 Tablet 1 3 11/21/19 24 Discontin ued(Refil l) Losartan Potassium 50 MG Oral Tablet (Cozaar)Indications:HTN, goal below 140/90 Take 1 Tablet by mouth in the morning. In the morning.. 90 Tablet 1 3 11/21/19 24 Discontin ued(Refil l) documented as of this encounter (statuses as of 11/22/2023) Active Problems Problem Noted Date Diagnosed Date [...] as of this encounter (statuses as of 11/22/2023) Resolved Problems Problem Noted Date Diagnosed Date [...] as of this encounter (statuses as of 11/22/2023) Immunizations Name Administration Dates Next Due COVID-19 [...] = 0.6 oz pur e alcohol) occ Utilities Answer Date Recorded Do you have trouble paying y our heating, water, or electric bill? (Adult - for ages 18 years and over) Not on file 11/21/2023 Is your family able to pay t he heat, water, or electric bill? (Household - for ages 0-17 years) Not on file 11/21/2023 Does your family have access to good internet? (Household - for ages 0-17 years) Not on file 11/21/2023 Social Connections Answer Date Recorded How often do you feel lonely or isolated from those around you? (Adult - for ages 18 years and over) Not on file 11/21/2023 Sex and Gender Information Value Date Recorded Sex Assigned at Not on file Gender Identity Not on file Sexual Orientation Not on file Job Start Date Occupation Industry Not on file Not on file Not on file documented as of this encounter Miscellaneous Notes * Telephone Encounter - Alxe Olivia RPh - 11/22/2023 11:03 AM EDTSigned Prescriptions: Disp Refills Sertraline HCl 100 MG Oral Tablet (Zoloft) 135 Ta*3 Sig: Take 1 1/2 tablets by mouth dailyAuthorizing Provider: NILAY ESCOBAR User: ALEX OLIVIARosuvastatin Calcium 40 MG Oral Tablet (Cr*90 Tab*1 Sig: Take 1 Tablet by mouth in the morning.Authorizing Provider: NILAY ESCOBAR User: ALEX OLIVIA Levothyroxine Sodium 112 MCG Oral Tablet (*90 Tab*3 Sig: Take 1 Tablet by mouth in the morning. (at least 30 min prior to breakfast or other meds).Authorizing Provider: NILAY ESCOBAR User: ALEX OLIVIA LosartanPotassium 50 MG Oral Tablet (Coza*90 Tab*3 Sig: Take 1 Tablet by mouth in the morning.Authorizing Provider: NILAY ESCOBAR User: ALEX OLIVIA documented in this encounter Plan of Treatment Upcoming Encounters Date Type Department Care Team (Late st Contact Info) Description 12/25/2023 6:00 PM EDT Office Visit Family Practice [facility] [address] [place] [address] Nilay Escobar DO [address] [place] [address] Health Maintenance Due Date Last Done Comments Hepatitis C Screening 1963 Depression Monitoring 01/13/2018 01/13/2017 COVID-19 Vaccine ( season) 2023 03/10/2023, 09/18/2021, [...] as of this encounter Visit Diagnoses Diagnosis Depression with anxiety Dysthymic disorder Pure hypercholesterolemia HTN, goal below 140/90 Unspecified essential hypertension documented in this encounter Care Teams Prep Cook Relationship Specialty Start Date End Date Nilay Escobar DO [address] [place] [address] PCP - General Family Medicine 07/04/14 documented as of this encounter
--- NOTE | 2023-12-09 00:04 | Emergency Department Note ---
Impression & Plan Acute pyelonephritis ADMIT ED Provider Note HPI: History obtained from patient. The patient is a 78-year-old female who presents the emergency department with a chief complaint of urinary frequency and right-sided abdominal pain. Patient states she began having urinary frequency yesterday and was taking Azo without relief. Patient states tonight when she was getting ready to go to bed she developed some pain to the right side of her abdomen that radiated to her right flank area. On arrival here to the ED the patient is hemodynamically stable, she is afebrile, she does complain of some moderate to severe pain in the area of the right flank. ROS: - Per HPI Differential Diagnosis: Urinary tract infection, pyelonephritis, kidney abscess, kidney stone, amongst other potential pathologies. *Outpatient medications and allergy history reviewed. 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 Lab work shows a significant leukocytosis of 18.74, hemoglobin is stable at 14, platelet count is normal, CMP does not show any critical findings, there is no transaminitis, bilirubin is normal, lipase is normal, urinalysis is suggestive of infection with 3+ blood, urine nitrite positive and 3+ leukocyte esterase with significant pyuria. Blood cultures were drawn, patient was started on IV ceftriaxone. On my reassessment patient states she is feeling improved following IV morphine and IV Zofran. She remains hemodynamically stable. Given her significant leukocytosis with findings of UTI and pyelonephritis on CT imaging, I do feel the patient should be admitted to the hospital for further management. Patient is in agreement to this. I discussed the patient's presentation with the on-call hospitalist, Dr. Woods, and the patient was placed for admission in stable condition. Consultants/Discussions held with other healthcare providers: -Hospitalist, Dr. Woods Disposition discussion held by myself with: -Patient Diagnosis: 1. Pyelonephritis, acute, right-sided 2. Urinary tract infection, acute 3. Leukocytosis, acute 4. Hematuria, acute Disposition: Admission Keith Vargas DO Emergency Medicine Past Med/Surg History Problem List (Updated 12/09/23 @ 01:54 by Keith Vargas DO) Acute pyelonephritis (Acute) Cervical facet joint syndrome Tendinitis of right rotator cuff Tendinitis of left rotator cuff Leukocytosis (Acute) Acute pyelonephritis (Acute) Hypertension Hypothyroidism Hyperlipidemia Anxiety Cervical radiculitis Cervical radiculopathy at C7 DVT prophylaxis Vomiting (Acute) Chest wall pain (Acute) Enteritis (Acute) Left eye pain (Acute) Medical History Cervical facet joint syndrome Cervical radiculopathy at C7 Cervical radiculitis Anxiety Hyperlipidemia Hypothyroidism Hypertension Leukocytosis Acute pyelonephritis Tendinitis of left rotator cuff Tendinitis of right rotator cuff UTI (urinary tract infection) Epigastric abdominal pain Social History Smoking Status: Never smoker Hx Alcohol Use: No Hx Substance Use: No Preferred Language: Estonian Communication Ability: Effective Respooler Required: No Beliefs That Will Affect Care: None Current Living Situation: Family Current Living Situation Comment: home with son Feels Safe at Home: Yes Assistive Devices: Glasses and Hearing Aid - Bilateral Allergies Allergies Allergy/AdvReac Type Severity Reaction Status Date / Time cat dander Allergy Severe sneezing Verified 12/09/23 01:21 wheezing itching astemizole Allergy Mild SWELLING Verified 12/09/23 01:21 THROAT AND RINGING IN EARS ceftriaxone [From Rocephin] AdvReac Mild Nausea Verified 12/09/23 01:53 Home Meds Home Medications Medication Instructions Recorded Confirmed sertraline 100 mg tablet 150 mg PO DAILY 03/30/18 12/09/23 cyclobenzaprine 5 mg tablet 5 mg PO HS PRN Muscle Spasm 02/05/22 12/09/23 lorazepam 0.5 mg tablet 0.5 mg PO HS PRN Anxiety 02/05/22 12/09/23 losartan 50 mg tablet 50 mg PO DAILY 02/05/22 12/09/23 rosuvastatin 40 mg tablet 40 mg PO DAILY 02/05/22 12/09/23 valacyclovir 1 gram tablet 1 mg PO TID PRN Rash 02/05/22 12/09/23 levothyroxine 112 mcg tablet 112 mcg PO DAILY 12/09/23 12/09/23 Previous Rx's Medication Instructions Recorded ondansetron 4 mg disintegrating 4 mg PO Q6H PRN nausea and 07/16/23 tablet vomiting #12 tabs Results & Data (ED) Vital Signs Vital Signs - 24 hr 12/08/23 23:50 12/09/23 00:09 12/09/23 00:36 Temperature 36.7 C Temperature Source Temporal Artery Scan Pulse Rate 93 H 78 80 Respiratory Rate 18 17 Blood Pressure 168/84 H 142/62 H Blood Pressure Mean 112 88 Pulse Oximetry 98 96 Oxygen Delivery Method Room Air Sepsis Recent Fever Within 48 Hours No Sepsis New/Unexplained Change in Mental Status No Sepsis Action Taken by Nursing No Action Required 12/09/23 01:00 Temperature Temperature Source Pulse Rate 77 Respiratory Rate 16 Blood Pressure 135/74 Blood Pressure Mean 113 Pulse Oximetry 97 Oxygen Delivery Method Sepsis Recent Fever Within 48 Hours Sepsis New/Unexplained Change in Mental Status Sepsis Action Taken by Nursing Laboratory Data 12/09/23 00:12 12/09/23 00:12 Lab Results 12/08/23 12/09/23 Range/Units 23:55 00:12 WBC 18.74 H (4.8-10.8) K/ul RBC 4.38 (4.20-5.40) M/uL Hgb 14.0 (12.0-16.0) g/dl Hct 42.0 (37.0-47.0) % MCV 95.9 (80.0-100.0) fL MCH 32.0 (25.0-34.0) pg MCHC 33.3 (32.0-36.0) g/dL RDW Std Deviation 41.3 (36.4-46.3) fL RDW Coeff of [place] 11.9 (11.5-14.5) % Plt Count 301 (130-400) K/uL MPV 8.8 L (9.4-12.4) fL Immature Gran % (Auto) 0.4 % Neut % (Auto) 73.3 % Lymph % (Auto) 17.5 % Wake % (Auto) 7.0 % Eos % (Auto) 1.3 % Baso % (Auto) 0.5 % Neut # (Auto) 13.72 H (1.40-6.50) K/uL Lymph # (Auto) 3.28 (1.20-3.40) K/uL Wake # (Auto) 1.32 H (0.11-0.59) K/uL Eos # (Auto) 0.25 (0.00-0.50) K/uL Baso # (Auto) 0.09 (0.00-0.20) K/uL Immature Gran # (Auto) 0.08 (0.01-0.20) K/uL PT 10.8 (9.0-12.0) Seconds INR 1.0 (0.9-1.1) Sodium 139 (136-145) mmol/L Potassium 3.7 (3.5-5.1) mmol/L Chloride 104 (98-107) mmol/L Carbon Dioxide 27 (21-32) mmol/L Anion Gap 8 (3-11) BUN 14 (6-23) mg/dl Creatinine 0.87 (0.6-1.2) mg/dl Est Cr Clr Drug Dosing 41.0 ml/min Est GFR ( Amer) 74.5 ml/min Est GFR (Non-Af Amer) 64.3 ml/min BUN/Creatinine Ratio 16.1 (10-20) Glucose 100 H (70-99(Fasting)) mg/dl Calcium 9.4 (8.6-10.3) mg/dl Total Bilirubin 0.4 (0.2-1.0) mg/dl AST 27 (13-39) U/L ALT 16 (7-52) U/L Alkaline Phosphatase 80 (34-104) U/L Total Protein 7.6 (6.0-8.3) gm/dl Albumin 4.5 (3.4-5.0) gm/dl Globulin 3.1 (2.5-4.0) gm/dl Albumin/Globulin Ratio 1.5 (0.9-2) Lipase 37 (11-82) U/L Urine Color Dark Yellow Urine Appearance Cloudy A (Clear) Urine pH 6.0 (4.5-7.5) Ur Specific [place] 1.009 (1.000-1.030) Urine Protein 2+ H (Negative) Urine Glucose (UA) Negative (Negative) Urine Ketones Negative (Negative) Urine Blood 3+ H (Negative) Urine Nitrite Positive A (Negative) Urine Bilirubin Negative (Negative) Urine Urobilinogen Negative (Negative) Ur Leukocyte Esterase 3+ H (Negative) Urine WBC (Auto) >50 H (0-5) /hpf Urine RBC (Auto) >20 H (0-2) /hpf U Hyaline Cast (Auto) 0-2 (0-2) /lpf U Epithel Cells (Auto) 0-2 (0-2) /hpf Urine Bacteria (Auto) None Seen (None Seen) Administered Medications Discontinued Medications Sodium Chloride (Nss) 500 mls @ 999 mls/hr IV .Q31M ONE Stop: 12/09/23 00:31 Last Infusion: 12/09/23 00:51 Dose: Infused Documented By: Admin: 12/09/23 00:12 Dose: 999 mls/hr Documented By: MARKO Ceftriaxone Sodium (Rocephin) 2,000 mg in 50 mls @ 100 mls/hr IV NOW STA Stop: 12/09/23 01:35 Last Infusion: 12/09/23 01:31 Dose: Infused Documented By: Infusion: 12/09/23 01:31 Dose: 0 mls/hr Documented By: Admin: 12/09/23 01:20 Dose: 100 mls/hr Documented By: MARKO Morphine Sulfate (Morphine Sulfate 4 Mg/Ml 1 Ml Carp\Vial) 4 mg IV NOW STA Stop: 12/09/23 00:01 Last Admin: 12/09/23 00:11 Dose: 4 mg Documented By: MARKO Ondansetron HCl (Ondansetron Inj 2 Mg/Ml 2 Ml Vial) 4 mg IV NOW STA Stop: 12/09/23 00:01 Last Admin: 12/09/23 00:11 Dose: 4 mg Documented By: MARKO Ondansetron HCl (Ondansetron Inj 2 Mg/Ml 2 Ml Vial) 4 mg IV NOW STA Stop: 12/09/23 01:34 Last Admin: 12/09/23 01:34 Dose: 4 mg Documented By: MARKO Imaging Data Radiologist's Impression: Abdomen/Pelvis CT 12/09/23 00:01 Exam(s): CT ABDOMEN + PELVIS Without Contrast EXAM: CT Abdomen and Pelvis Without Intravenous Contrast CLINICAL HISTORY: Reason for exam: Right flank pain, urinary frequency. TECHNIQUE: Axial computed tomography images of the abdomen and pelvis without intravenous contrast. CTDI is 12.91 mGy and DLP is 592.46 mGy-cm. Automated exposure control was utilized for the study. A dose lowering technique was utilized adhering to the principles of ALARA. COMPARISON: 03/28/23 FINDINGS: Lung bases: Unremarkable. No mass. No consolidation. ABDOMEN: Liver: Unremarkable. Subcentimeter low-density lesion inferior right liver incidentally noted, too small to further characterize. Gallbladder and bile ducts: Unremarkable. No calcified stones. No ductal dilation. Pancreas: Unremarkable. No ductal dilation. Spleen: Unremarkable. No splenomegaly. Adrenals: Unremarkable. No mass. Kidneys and ureters: Minimal inflammatory stranding surrounding the right kidney demonstrated without significant hydronephrosis. Diagnoses to consider include recently passed ureteral calculus or pyelonephritis. Recommend correlation with urinalysis and culture. Left kidney and left ureter are unremarkable. Stomach and bowel: Scattered diverticula in the colon. No diverticulitis. No obstruction. PELVIS: Appendix: No findings to suggest acute appendicitis. Bladder: Unremarkable. No stones. Reproductive: Post hysterectomy. ABDOMEN and PELVIS: Intraperitoneal space: Unremarkable. No free air. No significant fluid collection. Bones/joints: No acute fracture. No dislocation. Lumbar spine dextroscoliosis. Soft tissues: Unremarkable. Small bilateral Bochdalek hernias incidentally demonstrated. Vasculature: Unremarkable. No abdominal aortic aneurysm. Lymph nodes: Unremarkable. No enlarged lymph nodes. IMPRESSION: Minimal inflammatory stranding surrounding the right kidney demonstrated without significant hydronephrosis. Diagnoses to consider include recently passed ureteral calculus or pyelonephritis. Recommend correlation with urinalysis and culture. Electronically signed by: Saulo Diaz MD 12/09/23 01:33 AM Discharge Plan Visit Data Chief Complaint: Urinary Symptoms Stated Complaint: FLANK PAIN, URINARY URGENCY ED Provider: Keith aVrgas Discharge Problem: Acute pyelonephritis Forms Stand Alone Forms: [facility] Prescriptions Prescriptions: No Action sertraline 100 mg tablet 150 mg PO DAILY losartan 50 mg tablet 50 mg PO DAILY valacyclovir 1 gram Tablet 1 mg PO TID PRN (Reason: Rash) Rx Instructions: PRN shingle flare lorazepam 0.5 mg tablet 0.5 mg PO HS PRN (Reason: Anxiety) cyclobenzaprine 5 mg tablet 5 mg PO HS PRN (Reason: Muscle Spasm) rosuvastatin 40 mg tablet 40 mg PO DAILY levothyroxine 112 mcg tablet 112 mcg PO DAILY ondansetron 4 mg tablet,disintegrating 4 mg PO Q6H PRN (Reason: nausea and vomiting) Qty: 12 0RF Referrals Referrals: Katarzyna Escobar DO [Primary Care Provider] -
[2023-12-09] MEDS: MoRPHine SULFATE 4 MG/ML 1 ML CARP\\VIAL IV STA (00:11)
[2023-12-09] MEDS: ONDANSETRON INJ 2 MG/ML 2 ML VIAL IV STA ×2 (00:11→01:34)
[2023-12-09] MEDS: SODIUM CHLORIDE 0.9% 500 ML IV ONE (00:12)
[2023-12-09 00:25] LABS: Basophils # (auto) 0.09 K/uL (0.00-0.20); Basophils % (auto) 0.5 %; Eosinophils # (auto) 0.25 K/uL (0.00-0.50); Eosinophils % (auto) 1.3 %; Immature Granulocytes # (auto) 0.08 K/uL (0.01-0.20); Immature Granulocytes % (auto) 0.4 %; Lymphocytes # (auto) 3.28 K/uL (1.20-3.40); Lymphocytes % (auto) 17.5 %; Mean Corpuscular Hgb Conc 33.3 g/dL (32.0-36.0); Mean Corpuscular Volume 95.9 fL (80.0-100.0); Mean Platelet Volume 8.8 fL (9.4-12.4); Monocytes # (auto) 1.32 K/uL (0.11-0.59); Neutrophils # (auto) 13.72 K/uL (1.40-6.50); Neutrophils % (auto) 73.3 %; Platelet Count 301 K/uL (130-400); RDW Coefficient of Variation 11.9 % (11.5-14.5); RDW Standard Deviation 41.3 fL (36.4-46.3); Red Blood Count 4.38 M/uL (4.20-5.40); White Blood Count 18.74 K/ul (4.8-10.8)
[2023-12-09 00:42] LABS: Albumin Globulin Ratio 1.5 (0.9-2); Albumin Level 4.5 gm/dl (3.4-5.0); BUN Creatinine Ratio 16.1 (10-20); Bilirubin,Total 0.4 mg/dl (0.2-1.0); Calcium 9.4 mg/dl (8.6-10.3); Est GFR (African American) 74.5 ml/min; Est GFR (Non-African American) 64.3 ml/min; Globulin 3.1 gm/dl (2.5-4.0); Potassium 3.7 mmol/L (3.5-5.1); Total Protein 7.6 gm/dl (6.0-8.3)
[2023-12-09 01:00] LABS: Appearance Urine Cloudy (Clear); Bacteria Urine Automated None Seen (None Seen); Bilirubin Urine Negative (Negative); Blood Urine 3+ (Negative); Cast Urine Automated 0-2 /lpf (0-2); Color Urine Dark Yellow; Epithelial Cell Urine Auto 0-2 /hpf (0-2); Glucose Urine UA Negative (Negative); Ketones Urine Negative (Negative); Leukocyte Esterase Urine 3+ (Negative); Nitrite Urine Positive (Negative); Protein Urine 2+ (Negative); RBC Urine Automated >20 /hpf (0-2); Specific Gravity Urine 1.009 (1.000-1.030); Urobilinogen Urine Negative (Negative); WBC Urine Automated >50 /hpf (0-5)
[2023-12-09 01:10] LABS: Prothrombin Time 10.8 Seconds (9.0-12.0)
[2023-12-09] MEDS: cefTRIAXone SODIUM 2,000 MG/50 ML BAG IV STA (01:20)
--- NOTE | 2023-12-09 01:33 | CT Scan Report ---
Exam(s): CT ABDOMEN + PELVIS Without Contrast EXAM: CT Abdomen and Pelvis Without Intravenous Contrast CLINICAL HISTORY: Reason for exam: Right flank pain, urinary frequency. TECHNIQUE: Axial computed tomography images of the abdomen and pelvis without intravenous contrast. CTDI is 12.91 mGy and DLP is 592.46 mGy-cm. Automated exposure control was utilized for the study. A dose lowering technique was utilized adhering to the principles of ALARA. COMPARISON: 03/28/23 FINDINGS: Lung bases: Unremarkable. No mass. No consolidation. ABDOMEN: Liver: Unremarkable. Subcentimeter low-density lesion inferior right liver incidentally noted, too small to further characterize. Gallbladder and bile ducts: Unremarkable. No calcified stones. No ductal dilation. Pancreas: Unremarkable. No ductal dilation. Spleen: Unremarkable. No splenomegaly. Adrenals: Unremarkable. No mass. Kidneys and ureters: Minimal inflammatory stranding surrounding the right kidney demonstrated without significant hydronephrosis. Diagnoses to consider include recently passed ureteral calculus or pyelonephritis. Recommend correlation with urinalysis and culture. Left kidney and left ureter are unremarkable. Stomach and bowel: Scattered diverticula in the colon. No diverticulitis. No obstruction. PELVIS: Appendix: No findings to suggest acute appendicitis. Bladder: Unremarkable. No stones. Reproductive: Post hysterectomy. ABDOMEN and PELVIS: Intraperitoneal space: Unremarkable. No free air. No significant fluid collection. Bones/joints: No acute fracture. No dislocation. Lumbar spine dextroscoliosis. Soft tissues: Unremarkable. Small bilateral Bochdalek hernias incidentally demonstrated. Vasculature: Unremarkable. No abdominal aortic aneurysm. Lymph nodes: Unremarkable. No enlarged lymph nodes. IMPRESSION: Minimal inflammatory stranding surrounding the right kidney demonstrated without significant hydronephrosis. Diagnoses to consider include recently passed ureteral calculus or pyelonephritis. Recommend correlation with urinalysis and culture. Electronically signed by: Saulo Diaz MD 12/09/23 01:33 AM
--- NOTE | 2023-12-09 02:49 | History & Physical Report ---
Date of Service December 09, 2023 Assessment & Plan (1) Acute pyelonephritis: Plan: 78-year-old female with past medical history significant for hypothyroidism, hyperlipidemia, chronic rhinitis, moderate persistent asthma, seasonal allergic rhinitis, hypertension, mitral valve prolapse, irritable bowel syndrome, GERD, eczema, osteoarthritis, depression, generalized anxiety disorder presents with urinary symptoms and found to have UTI and acute pyonephritis. Patient states yesterday started to have frequency and urgency of urine. She has history of UTIs in the past and pyelonephritis left side in the past as per patient. Her symptoms were not improving and she started developing right flank pain radiating to the abdomen when decided to come to the ER. Was nauseous when she came in. Denies any burning micturition. She states she has alternating bowel movements. And she does not feel her bowels are emptied properly ,going on for a year. Her appetite is down. Denies any chest pain or shortness of breath. No headache. No dizziness. No blurred visions. Currently no earache. Currently no runny nose. Has occasional cough. No sore throat. No difficulty swallowing. Hemodynamics are okay. Acute pyelonephritis came with urinary symptoms and right flank pain. History of UTIs in the past. UA is positive. CT abdomen pelvis possible right pyelonephritis. ER started on empiric Rocephin which will be continued. IV fluids. Will follow cultures. Close monitor. Hypothyroidism. On Synthyroid. Hypertension. On losartan. Hyperlipidemia. On rosuvastatin. Depression. Generalized anxiety disorder. On Zoloft. On Ativan as needed. Irritable bowel syndrome Feeling of not emptying her bowels properly. follow-up with PCP. DVT prophylaxis. Heparin subcu. Disposition. Medical floor. Full code. History of Present Illness Chief Complaint: Acute pyelonephritis Primary Care Provider: Katarzyna Escobar DO 78-year-old female with past medical history significant for hypothyroidism, hyperlipidemia, chronic rhinitis, moderate persistent asthma, seasonal allergic rhinitis, hypertension, mitral valve prolapse, irritable bowel syndrome, GERD, eczema, osteoarthritis, depression, generalized anxiety disorder presents with urinary symptoms and found to have UTI and acute pyonephritis. Patient states yesterday started to have frequency and urgency of urine. She has history of UTIs in the past and pyelonephritis left side in the past as per patient. Her symptoms were not improving and she started developing right flank pain radiating to the abdomen when decided to come to the ER. Was nauseous when she came in. Denies any burning micturition. She states she has alternating bowel movements. And she does not feel her bowels are emptied properly ,going on for a year. Her appetite is down. Denies any chest pain or shortness of breath. No headache. No dizziness. No blurred visions. Currently no earache. Currently no runny nose. Has occasional cough. No sore throat. No difficulty swallowing. Hemodynamics are okay. Past medical history. As mentioned above. Past surgical history. Left foot bunion correction. Carpal tunnel surgery. . Colonoscopy. Cystoscopy and EGD. EGD with endoscopic ultrasound. Excision of lipoma of right biceps. Partial hysterectomy. Cataracts. Total hysterectomy. Social history. No smoking. Alcohol occasional. No drug use. Family history. Father had [place]. Mother had stroke. Sister had CABG. Thyroid disorder. Allergies Allergy/AdvReac Type Severity Reaction Status Date / Time cat dander Allergy Severe sneezing Verified 12/09/23 01:21 wheezing itching astemizole Allergy Mild SWELLING Verified 12/09/23 01:21 THROAT AND RINGING IN EARS ceftriaxone [From Rocephin] AdvReac Mild Nausea Verified 12/09/23 01:53 Home Medications Medication Instructions Recorded Confirmed Type sertraline 100 mg tablet 150 mg PO DAILY 03/30/18 12/09/23 History cyclobenzaprine 5 mg tablet 5 mg PO HS PRN Muscle Spasm 02/05/22 12/09/23 History lorazepam 0.5 mg tablet 0.5 mg PO HS PRN Anxiety 02/05/22 12/09/23 History losartan 50 mg tablet 50 mg PO DAILY 02/05/22 12/09/23 History rosuvastatin 40 mg tablet 40 mg PO DAILY 02/05/22 12/09/23 History valacyclovir 1 gram tablet 1 mg PO TID PRN Rash 02/05/22 12/09/23 History ondansetron 4 mg disintegrating 4 mg PO Q6H PRN nausea and 07/16/23 12/09/23 Rx tablet vomiting #12 tabs levothyroxine 112 mcg tablet 112 mcg PO DAILY 12/09/23 12/09/23 History Past Med/Surg History Problem List (Updated 12/09/23 @ 01:54 by Keith Vargas, DO) Acute pyelonephritis (Acute) Cervical facet joint syndrome Tendinitis of right rotator cuff Tendinitis of left rotator cuff Leukocytosis (Acute) Acute pyelonephritis (Acute) Hypertension Hypothyroidism Hyperlipidemia Anxiety Cervical radiculitis Cervical radiculopathy at C7 DVT prophylaxis Vomiting (Acute) Chest wall pain (Acute) Enteritis (Acute) Left eye pain (Acute) Medical History Cervical facet joint syndrome Cervical radiculopathy at C7 Cervical radiculitis Anxiety Hyperlipidemia Hypothyroidism Hypertension Leukocytosis Acute pyelonephritis Tendinitis of left rotator cuff Tendinitis of right rotator cuff UTI (urinary tract infection) Epigastric abdominal pain Social History Smoking Status: Never smoker Do You Dip or Chew Tobacco: No; Hx Alcohol Use: Yes Hx Substance Use: No Preferred Language: Greek Communication Ability: Effective Public Address Systems Mechanic Required: No Beliefs That Will Affect Care: None Current Living Situation: Family Current Living Situation Comment: lives with son Feels Safe at Home: Yes Safety Concerns: Feels Safe At This Time Assistive Devices: Glasses and Hearing Aid - Bilateral Review of Systems Review of Systems: All systems reviewed & are unremarkable except as noted in HPI & below Physical Exam Physical Exam: General- Not in distress Head- atraumatic Eyes- PERRL. ENT- oropharynx clear Neck- supple, no JVD. Lungs- clear to auscultation no wheezing or crackles Heart- regular rate and rhythm; no murmur, no gallop. Abdomen- normal bowel sounds, soft, mild abdominal discomfort, mild right cva Extremities- no pretibial edema, no erythema seen. Neuro- alert, oriented PERRL, no facial palsy; no dysarthria; moves extremities Results & Data Results & Data Vital Signs (Past 12 Hours) Vital Signs Temp Pulse Resp BP Pulse Ox O2 Del Method 12/09/23 01:00 77 16 135/74 97 12/09/23 00:36 80 17 142/62 H 96 Room Air 12/09/23 00:09 78 12/08/23 23:50 36.7 C 93 H 18 168/84 H 98 Diagnostic Findings Laboratory Results WBC 18.74 K/ul (4.8-10.8) H 12/09/23 00:12 RBC 4.38 M/uL (4.20-5.40) 12/09/23 00:12 Hgb 14.0 g/dl (12.0-16.0) 12/09/23 00:12 Hct 42.0 % (37.0-47.0) 12/09/23 00:12 MCV 95.9 fL (80.0-100.0) 12/09/23 00:12 MCH 32.0 pg (25.0-34.0) 12/09/23 00:12 MCHC 33.3 g/dL (32.0-36.0) 12/09/23 00:12 RDW Std Deviation 41.3 fL (36.4-46.3) 12/09/23 00:12 RDW Coeff of [place] 11.9 % (11.5-14.5) 12/09/23 00:12 Plt Count 301 K/uL (130-400) 12/09/23 00:12 MPV 8.8 fL (9.4-12.4) L 12/09/23 00:12 Immature Gran % (Auto) 0.4 % 12/09/23 00:12 Neut % (Auto) 73.3 % 12/09/23 00:12 Lymph % (Auto) 17.5 % 12/09/23 00:12 [place] % (Auto) 7.0 % 12/09/23 00:12 Eos % (Auto) 1.3 % 12/09/23 00:12 Baso % (Auto) 0.5 % 12/09/23 00:12 Neut # (Auto) 13.72 K/uL (1.40-6.50) H 12/09/23 00:12 Lymph # (Auto) 3.28 K/uL (1.20-3.40) 12/09/23 00:12 [place] # (Auto) 1.32 K/uL (0.11-0.59) H 12/09/23 00:12 Eos # (Auto) 0.25 K/uL (0.00-0.50) 12/09/23 00:12 Baso # (Auto) 0.09 K/uL (0.00-0.20) 12/09/23 00:12 Immature Gran # (Auto) 0.08 K/uL (0.01-0.20) 12/09/23 00:12 PT 10.8 Seconds (9.0-12.0) 12/09/23 00:12 INR 1.0 (0.9-1.1) 12/09/23 00:12 Sodium 139 mmol/L (136-145) 12/09/23 00:12 Potassium 3.7 mmol/L (3.5-5.1) 12/09/23 00:12 Chloride 104 mmol/L (98-107) 12/09/23 00:12 Carbon Dioxide 27 mmol/L (21-32) 12/09/23 00:12 Anion Gap 8 (3-11) 12/09/23 00:12 BUN 14 mg/dl (6-23) 12/09/23 00:12 Creatinine 0.87 mg/dl (0.6-1.2) 12/09/23 00:12 Est Cr Clr Drug Dosing 41.0 ml/min 12/09/23 00:12 Est GFR ( Amer) 74.5 ml/min 12/09/23 00:12 Est GFR (Non-Af Amer) 64.3 ml/min 12/09/23 00:12 BUN/Creatinine Ratio 16.1 (10-20) 12/09/23 00:12 Glucose 100 mg/dl (70-99(Fasting)) H 12/09/23 00:12 Calcium 9.4 mg/dl (8.6-10.3) 12/09/23 00:12 Total Bilirubin 0.4 mg/dl (0.2-1.0) 12/09/23 00:12 AST 27 U/L (13-39) 12/09/23 00:12 ALT 16 U/L (7-52) 12/09/23 00:12 Alkaline Phosphatase 80 U/L (34-104) 12/09/23 00:12 Total Protein 7.6 gm/dl (6.0-8.3) 12/09/23 00:12 Albumin 4.5 gm/dl (3.4-5.0) 12/09/23 00:12 Globulin 3.1 gm/dl (2.5-4.0) 12/09/23 00:12 Albumin/Globulin Ratio 1.5 (0.9-2) 12/09/23 00:12 Lipase 37 U/L (11-82) 12/09/23 00:12 Procalcitonin < 0.02 ng/ml (0-0.5) 12/09/23 00:12 Urine Color Dark Yellow 12/08/23 23:55 Urine Appearance Cloudy (Clear) A 12/08/23 23:55 Urine pH 6.0 (4.5-7.5) 12/08/23 23:55 Ur Specific [place] 1.009 (1.000-1.030) 12/08/23 23:55 Urine Protein 2+ (Negative) H 12/08/23 23:55 Urine Glucose (UA) Negative (Negative) 12/08/23 23:55 Urine Ketones Negative (Negative) 12/08/23 23:55 Urine Blood 3+ (Negative) H 12/08/23 23:55 Urine Nitrite Positive (Negative) A 12/08/23 23:55 Urine Bilirubin Negative (Negative) 12/08/23 23:55 Urine Urobilinogen Negative (Negative) 12/08/23 23:55 Ur Leukocyte Esterase 3+ (Negative) H 12/08/23 23:55 Urine WBC (Auto) >50 /hpf (0-5) H 12/08/23 23:55 Urine RBC (Auto) >20 /hpf (0-2) H 12/08/23 23:55 U Hyaline Cast (Auto) 0-2 /lpf (0-2) 12/08/23 23:55 U Epithel Cells (Auto) 0-2 /hpf (0-2) 12/08/23 23:55 Urine Bacteria (Auto) None Seen (None Seen) 12/08/23 23:55 Impressions Abdomen/Pelvis CT 12/09/23 00:01 Exam(s): CT ABDOMEN + PELVIS Without Contrast EXAM: CT Abdomen and Pelvis Without Intravenous Contrast CLINICAL HISTORY: Reason for exam: Right flank pain, urinary frequency. TECHNIQUE: Axial computed tomography images of the abdomen and pelvis without intravenous contrast. CTDI is 12.91 mGy and DLP is 592.46 mGy-cm. Automated exposure control was utilized for the study. A dose lowering technique was utilized adhering to the principles of ALARA. COMPARISON: 03/28/23 FINDINGS: Lung bases: Unremarkable. No mass. No consolidation. ABDOMEN: Liver: Unremarkable. Subcentimeter low-density lesion inferior right liver incidentally noted, too small to further characterize. Gallbladder and bile ducts: Unremarkable. No calcified stones. No ductal dilation. Pancreas: Unremarkable. No ductal dilation. Spleen: Unremarkable. No splenomegaly. Adrenals: Unremarkable. No mass. Kidneys and ureters: Minimal inflammatory stranding surrounding the right kidney demonstrated without significant hydronephrosis. Diagnoses to consider include recently passed ureteral calculus or pyelonephritis. Recommend correlation with urinalysis and culture. Left kidney and left ureter are unremarkable. Stomach and bowel: Scattered diverticula in the colon. No diverticulitis. No obstruction. PELVIS: Appendix: No findings to suggest acute appendicitis. Bladder: Unremarkable. No stones. Reproductive: Post hysterectomy. ABDOMEN and PELVIS: Intraperitoneal space: Unremarkable. No free air. No significant fluid collection. Bones/joints: No acute fracture. No dislocation. Lumbar spine dextroscoliosis. Soft tissues: Unremarkable. Small bilateral Bochdalek hernias incidentally demonstrated. Vasculature: Unremarkable. No abdominal aortic aneurysm. Lymph nodes: Unremarkable. No enlarged lymph nodes. IMPRESSION: Minimal inflammatory stranding surrounding the right kidney demonstrated without significant hydronephrosis. Diagnoses to consider include recently passed ureteral calculus or pyelonephritis. Recommend correlation with urinalysis and culture. Electronically signed by: Saulo Diaz MD 12/09/23 01:33 AM Code Status & VTE Plan VTE Prophylaxis Plan VTE Prophylaxis will be ordered: Yes
[2023-12-09] MEDS ORDERED: ONDANSETRON INJ 2 MG/ML 2 ML VIAL IV PRN (03:56)
[2023-12-09] MEDS ORDERED: KETOROLAC TROMETHAMINE 15 MG/ML VIAL IV PRN (03:56)
[2023-12-09] MEDS ORDERED: LORazepam 0.5 MG TAB PO PRN (03:56)
[2023-12-09] MEDS ORDERED: CYCLOBENZAPRINE HCL 5 MG TAB PO PRN (03:56)
[2023-12-09] MEDS: SODIUM CHLORIDE 0.9% 1,000 ML IV SCH (04:15)
[2023-12-09] MEDS: MoRPHine SULFATE 4 MG/ML 1 ML CARP\\VIAL IV PRN (04:15)
[2023-12-09] MEDS: LEVOTHYROXINE SODIUM 112 MCG TABLET PO SCH (06:26)
[2023-12-09 07:30] LABS: Basophils # (auto) 0.07 K/uL (0.00-0.20); Basophils % (auto) 0.4 %; Eosinophils % (auto) 1.2 %; Hematocrit (blood only) 40.2 % (37.0-47.0); Hemoglobin 12.9 g/dl (12.0-16.0); Immature Granulocytes # (auto) 0.05 K/uL (0.01-0.20); Immature Granulocytes % (auto) 0.3 %; Lymphocytes # (auto) 3.75 K/uL (1.20-3.40); Lymphocytes % (auto) 23.1 %; Mean Corpuscular Hemoglobin 31.4 pg (25.0-34.0); Mean Corpuscular Hgb Conc 32.1 g/dL (32.0-36.0); Mean Corpuscular Volume 97.8 fL (80.0-100.0); Mean Platelet Volume 9.2 fL (9.4-12.4); Monocytes # (auto) 1.03 K/uL (0.11-0.59); Monocytes % (auto) 6.4 %; Neutrophils # (auto) 11.12 K/uL (1.40-6.50); Neutrophils % (auto) 68.6 %; Platelet Count 291 K/uL (130-400); RDW Coefficient of Variation 11.9 % (11.5-14.5); RDW Standard Deviation 42.9 fL (36.4-46.3); Red Blood Count 4.11 M/uL (4.20-5.40); White Blood Count 16.22 K/ul (4.8-10.8)
[2023-12-09 07:51] LABS: BUN Creatinine Ratio 11.9 (10-20); Calcium 8.6 mg/dl (8.6-10.3); Creatinine Clr Calc Pharmacy 41.2 ml/min; Est GFR (African American) 77.7 ml/min; Potassium 4.2 mmol/L (3.5-5.1)
[2023-12-09] MEDS: LOSARTAN POTASSIUM 50 MG TAB PO SCH (08:23)
[2023-12-09] MEDS: ROSUVASTATIN CALCIUM 20 MG TAB PO SCH (08:23)
[2023-12-09] MEDS: SERTRALINE HCL 50 MG TABLET PO SCH (08:23)
[2023-12-09] MEDS: HEPARIN SOD 5,000 UNIT/0.5 ML VIAL SQ SCH (08:24)
[2023-12-09] MEDS: ACETAMINOPHEN 325 MG TAB PO PRN (08:29)
--- NOTE | 2023-12-09 09:46 | Communication Note ---
Date of Service: December 09, 2023 Evaluated at bedside, admitted overnight Reports significant improvement--eating breakfast and states pain is nearly gone VS stable labs with downtrending WBC 18-->16.22 stable renal function Ua and blood cultures pending #Acute pyelonephritis continue ctx follow cultures Dispo contingent on culture results rest of plan per HP
[2023-12-09] MEDS: cefTRIAXone SODIUM 2,000 MG/50 ML BAG IV SCH (22:48)
[2023-12-10 07:01] VITALS: BP 101/61; PULSE 64; RESP 16; TEMP 97.7; O2SAT 95
[2023-12-10 07:15] LABS: Hematocrit (blood only) 36.6 % (37.0-47.0); Mean Corpuscular Hgb Conc 32.8 g/dL (32.0-36.0); Mean Corpuscular Volume 97.6 fL (80.0-100.0); Mean Platelet Volume 9.3 fL (9.4-12.4); Platelet Count 259 K/uL (130-400); RDW Coefficient of Variation 11.9 % (11.5-14.5); RDW Standard Deviation 42.6 fL (36.4-46.3); Red Blood Count 3.75 M/uL (4.20-5.40); White Blood Count 8.56 K/ul (4.8-10.8)
[2023-12-10 07:40] LABS: BUN Creatinine Ratio 15.3 (10-20); Creatinine Clr Calc Pharmacy 40.7 ml/min; Est GFR (African American) 76.6 ml/min; Est GFR (Non-African American) 66.1 ml/min; Potassium 4.2 mmol/L (3.5-5.1)
[2023-12-10] MEDS: CIPROFLOXACIN 500 MG TAB PO SCH (09:49)
[2023-12-10] MEDS: FLUCONAZOLE 50 MG TAB PO ONE (09:49)
--- NOTE | 2023-12-10 11:52 | Discharge Summary ---
Discharge Summary Date of Service December 10, 2023 Principal Dx & Hospital Course #1 = Principal Diagnosis (1) Acute pyelonephritis: Ms. Burris is a 78-year-old female with past medical history significant for hypothyroidism, hyperlipidemia, chronic rhinitis, moderate persistent asthma, seasonal allergic rhinitis, hypertension, mitral valve prolapse, irritable bowel syndrome, GERD, eczema, osteoarthritis, depression, generalized anxiety disorder presents with urinary symptoms and found to have UTI and acute pyonephritis. Patient reports attempting to manage UTI with AZO OTC given symptoms for 2-3 days; however, pain began to radiate to right flank. Imaginge consistent with pyelo. Blood Cultures negative. Patient with resolution of symptoms. Transitioned to PO cipro. No acute events during hospitalization. #Acute pyelonephritis #Recurrent UTI came with urinary symptoms and right flank pain. History of UTIs in the past. UA is positive. CT abdomen pelvis possible right pyelonephritis. Improvement with CTX; discharged with ciprofloxacin bid Encouraged patient to Follow up with PCP to discuss #Hypothyroidism. On Synthyroid. # Hypertension. On losartan. 3Hyperlipidemia. On rosuvastatin. # Depression. Generalized anxiety disorder. On Zoloft. On Ativan as needed. #Irritable bowel syndrome Feeling of not emptying her bowels properly. follow-up with PCP. Notes For Next Care Provider Medication Changes From Visit Ciprofloxacin 500mg BID Admission HPI Per Admitting Provider 78-year-old female with past medical history significant for hypothyroidism, hyperlipidemia, chronic rhinitis, moderate persistent asthma, seasonal allergic rhinitis, hypertension, mitral valve prolapse, irritable bowel syndrome, GERD, eczema, osteoarthritis, depression, generalized anxiety disorder presents with urinary symptoms and found to have UTI and acute pyonephritis. Patient states yesterday day started to have frequency and urgency of urine. She has history of UTIs in the past and pyelonephritis left side in the past as per patient. Her symptoms were not improving and she started developing right flank pain radiating to the abdomen when decided to come to the ER. Was nauseous when she came in. Denies any burning micturition. She states she has alternating bowel movements. And she does not feel her bowels are emptied properly ,going on for a year. Her appetite is down. Denies any chest pain or shortness of breath. No headache. No dizziness. No blurred visions. Currently no earache. Currently no runny nose. Has occasional cough. No sore throat. No difficulty swallowing. Hemodynamics are okay. Past medical history. As mentioned above. Past surgical history. Left foot bunion correction. Carpal tunnel surgery. . Colonoscopy. Cystoscopy and EGD. EGD with endoscopic ultrasound. Excision of lipoma of right biceps. Partial hysterectomy. Cataracts. Total hysterectomy. Social history. No smoking. Alcohol occasional. No drug use. Family history. Father had [place]. Mother had stroke. Sister had CABG. Thyroid disorder. Admission Exam Per Admitting Provider General- Not in distress Head- atraumatic Eyes- PERRL. ENT- oropharynx clear Neck- supple, no JVD. Lungs- clear to auscultation no wheezing or crackles Heart- regular rate and rhythm; no murmur, no gallop. Abdomen- normal bowel sounds, soft, mild abdominal discomfort, mild right cva Extremities- no pretibial edema, no erythema seen. Neuro- alert, oriented PERRL, no facial palsy; no dysarthria; moves extremities Discharge Exam Constitutional WD/WN, vitals as above Respiratory normal respiratory effort, lungs clear to auscultation Cardiovascular RRR, no murmur, no edema Gastrointestinal (Abdomen) normal bowel sounds, soft, nontender, no hepatosplenomegaly Updated Medication List Medication Instructions Recorded Confirmed Type sertraline 100 mg tablet 150 mg PO DAILY 03/30/18 12/09/23 History cyclobenzaprine 5 mg tablet 5 mg PO HS PRN Muscle Spasm 02/05/22 12/09/23 History lorazepam 0.5 mg tablet 0.5 mg PO HS PRN Anxiety 02/05/22 12/09/23 History losartan 50 mg tablet 50 mg PO DAILY 02/05/22 12/09/23 History rosuvastatin 40 mg tablet 40 mg PO DAILY 02/05/22 12/09/23 History valacyclovir 1 gram tablet 1 mg PO TID PRN Rash 02/05/22 12/09/23 History ondansetron 4 mg disintegrating 4 mg PO Q6H PRN nausea and 07/16/23 12/09/23 Rx tablet vomiting #12 tabs levothyroxine 112 mcg tablet 112 mcg PO DAILY 12/09/23 12/09/23 History ciprofloxacin HCl 500 mg tablet 500 mg PO BID 8 days #17 tabs 12/10/23 Rx Hospital Stay Data Diagnostic Imagining Performed 12/09/23 00:01 CT abd pelvis wo con Stat Pending Results Patient Have Any Pending Studies at Discharge: No Discharge Instructions Given to Patient (Per Discharging Provider) You were found to have pyelonephritis, or acute infection of your kidney that often stems from urinary tract infection. You were started on IV antibiotics with much improvement. Please complete the following course of antibiotics: Ciprofloxacin 500mg two times a day until course complete. Your next dose is this evening 12/09 around 8-9pm. Please follow up with your PCP to discuss your history of UTI and further efforts for prevention. Total Time Total Time Spent Total Time Spent (In Minutes): 45
== END 2023-12-10 11:16 | disposition home or self-care (01) | DRG 690 ==
LOC: ED 23:45 → INTOOBSV 12-09 02:36 → SUATTDRO 12-09 02:36 → 3W 12-09 02:36